=== PATIENT | female | born 1960 | race Caucasian/White ===

== ENCOUNTER → 2016-03-20 | Outpatient (CLI) | payer BC ==
--- NOTE | 2016-03-20 11:11 | REP ---
Right humerus two views : There is no fracture or dislocation. Mineralization and joint spaces are normal. There are no calcifications or foreign bodies. Impression: Negative right humerus . Signed by Josué Bright MD 03/20/2016 10:21 A
--- NOTE | 2016-03-20 11:11 | REP ---
Right shoulder three views : There is no fracture or dislocation. Mineralization and joint spaces are normal. There are no calcifications or foreign bodies. Impression: Negative right shoulder . Signed by Josué Bright MD 03/20/2016 10:20 A
--- NOTE | 2016-03-20 11:12 | REP ---
Thoracic spine three views: There are no comparisons. Vertebral body heights and alignment are normal. There is mild intervertebral degenerative disc disease throughout the thoracic spine, not unusual for patient age. The pedicles are unremarkable. Mineralization is normal. Impression: Mild multilevel degenerative disc disease, otherwise, negative thoracic spine. Signed by Josué Bright MD 03/20/2016 10:22 A
== END ==
LOC: M CLY 09:10
PROVIDERS: ATTEND Family Medicine
DX: M51.34 Other intervertebral disc degeneration, thoracic region (principal); M79.601 Pain in right arm

== ENCOUNTER → 2016-06-05 | Outpatient (CLI) | payer BC ==
--- NOTE | 2016-06-08 08:25 | REP ---
MRI CERVICAL SPINE WITHOUT CONTRAST: HISTORY: Arm paresthesia. A disc bulge is present at the C4-5 level. There is mild effacement of the thecal sac without spinal cord compression. The C4 neural foramina are patent. A disc bulge with associated osteophyte formation is present at the C5-6 level. There is moderate effacement of the thecal sac without spinal cord compression. Bilateral uncinate process hypertrophy is present. This produces moderate and mild narrowing of the right and left C5 neural foramina respectively. A disc bulge with associated osteophyte formation is present at the C6-7 level. There is moderate effacement of the thecal sac without spinal cord compression. Bilateral uncinate process hypertrophy is present. This produces moderate and mild narrowing of the right and left C6 neural foramina respectively. There is no other disc bulge or herniation. The remaining neural foramina are patent. The spinal cord is normal in signal intensity. The C5-6 and C6-7 intervertebral discs are decreased in height consistent with disc degeneration. A 4 mm focus of increased signal intensity on T2-weighted images is present in the right thyroid lobe. The left thyroid lobe is normal in signal intensity. IMPRESSION: 1. There is cervical spondylosis at the C4-5 through C6-7 levels without spinal cord compression. 2. There is a 4 mm focus of increased signal intensity in the right thyroid lobe. This most likely represents a cyst. Ultrasound may be helpful for further evaluation. Signed by Adrian Hammond MD 06/08/2016 08:28 A
--- NOTE | 2016-06-08 08:32 | REP ---
MRI THORACIC SPINE WITHOUT CONTRAST: HISTORY: Right arm paresthesia. A small left paracentral disc protrusion is present at the T4-5 level. There is minimal effacement of the thecal sac without spinal cord compression. The T4 neural foramina are patent. A small left paracentral disc protrusion is present at the T6-7 level. This abuts the spinal cord. The T6 neural foramina are patent. There is no other disc bulge or herniation. The remaining neural foramina are patent. The spinal cord is normal in signal intensity. A hemangioma is present in the T7 vertebral body. Normal signal intensity is present in the remaining thoracic vertebral bodies. There is an old compression fracture of the T12 vertebral body with minimal height loss. Cysts are present in the kidneys. IMPRESSION: 1. Small disc protrusions at the T4-5 and T6-7 levels without spinal cord compression. 2. Old T12 compression fracture with minimal height loss. 3. Bilateral renal cysts. Ultrasound may be helpful for further evaluation. Signed by Adrian Hammond MD 06/08/2016 08:34 A
== END ==
LOC: M RAD 16:45
PROVIDERS: ATTEND Family Medicine
DX: M43.02 Spondylolysis, cervical region (principal); R93.8 Abnormal findings on diagnostic imaging of other specified body structures; M51.24 Other intervertebral disc displacement, thoracic region; N28.1 Cyst of kidney, acquired; Z87.81 Personal history of (healed) traumatic fracture

== ENCOUNTER → 2016-08-05 | Outpatient (CLI) | payer BC ==
[~2016-08-05] MED LIST: LIDOCAINE 1% MDV 20ML VIAL As Ordered ONE
== END ==
LOC: M RADPRO 11:52
PROVIDERS: ATTEND Nurse Practitioner Family
DX: D34 Benign neoplasm of thyroid gland (principal); Z88.8 Allergy status to other drugs, medicaments and biological substances; Z79.899 Other long term (current) drug therapy

== ENCOUNTER → 2017-01-04 | Outpatient (CLI) | payer BC ==
--- NOTE | 2017-01-04 10:16 | REPMRS ---
Patient History The patient states she had a clinical breast exam in Patient is postmenopausal. Family history of ovarian cancer in paternal grandmother under age 50. Digital Woman Screen Mammo: January 04, 2017 - Exam #: [id number] Bilateral CC and MLO view(s) were taken. Technologist: Lisa Cortez, Technologist Prior study comparison: October 18, 2015, digital woman screen mammo performed at [facility]. October 17, 2014, digital woman screen mammo performed at [facility] to [facility]. FINDINGS: There are scattered fibroglandular densities. There has been no change in the appearance of the mammogram from the prior studies. There is a mild amount of scattered fibroglandular density which is fairly symmetric. There is no interval development of dominant mass, architectural distortion, or clustered microcalcification suggestive of malignancy. ASSESSMENT: BI-RADS/ACR category 1 mammogram. Negative. Recommendation Routine screening mammogram in 1 year (for women over age 40). This mammogram was interpreted with the aid of an FDA-approved computer-aided dectection system. Electronically Signed By: Rob Ken MD 01/04/17 1016
== END ==
LOC: M WHC 08:51
PROVIDERS: ATTEND Nurse Practitioner Family
DX: Z12.31 Encounter for screening mammogram for malignant neoplasm of breast (principal)

== ENCOUNTER → 2017-01-04 | Outpatient (REF) | payer BC ==
[2017-01-06 08:06] LABS: Lyme Disease IgG Ab 18 kDa Ban Absent (.); Lyme Disease IgG Ab 23 kDa Ban Absent (.); Lyme Disease IgG Ab 28 kDa Ban Absent (.); Lyme Disease IgG Ab 30 kDa Ban Absent (.); Lyme Disease IgG Ab 39 kDa Ban Absent (.); Lyme Disease IgG Ab 41 kDa Ban Absent (.); Lyme Disease IgG Ab 45 kDa Ban Absent (.); Lyme Disease IgG Ab 58 kDa Ban Absent (.); Lyme Disease IgG Ab 66 kDa Ban Absent (.); Lyme Disease IgG Ab 93 kDa Ban Absent (.); Lyme Disease IgG West Blot Int Negative (.); Lyme Disease IgG/IgM Antibodie <0.91 ISR (0.00-0.90); Lyme Disease IgM Ab 23 kDa Ban Absent (.); Lyme Disease IgM Ab 39 kDa Ban Absent (.); Lyme Disease IgM Ab 41 kDa Ban Present (.); Lyme Disease IgM Ab Quantitati 1.09 index (0.00-0.79); Lyme Disease IgM West Blot Int Negative (.)
== END ==
LOC: M SFHCCLAY 07:28
PROVIDERS: ATTEND Family Medicine
DX: R76.8 Other specified abnormal immunological findings in serum (principal)

== ENCOUNTER → 2018-06-28 | Outpatient (REF) | payer BC ==
[2018-07-02 14:30] LABS: HPV HYBRID CAPTURE II Negative (Negative)
== END ==
LOC: M SFHCWAGY 16:18
PROVIDERS: ATTEND Nurse Practitioner Family
DX: Z12.72 Encounter for screening for malignant neoplasm of vagina (principal)
CPT/HCPCS: 87624; G0123

== ENCOUNTER → 2018-06-28 | Outpatient (CLI) | payer BC ==
--- NOTE | 2018-06-28 16:54 | REPMRS ---
Patient History The patient states she had a clinical breast exam in 06/2018. Patient is postmenopausal. Family history of ovarian cancer under age 50 in paternal grandmother. No Hormone Replacement Therapy Digital Woman Screen Mammo: June 28, 2018 - Exam #: [id number] Bilateral CC and MLO view(s) were taken. Technologist: Yanelis Lomeli, Technologist Prior study comparison: January 04, 2017, digital woman screen mammo performed at [facility]. October 18, 2015, digital woman screen mammo performed at [facility]. October 17, 2014, digital woman screen mammo performed at [facility] [employer] [place] [facility]. FINDINGS: There are scattered fibroglandular densities. There has been no change in the appearance of the mammogram from the prior studies. There is a mild amount of scattered fibroglandular density which is fairly symmetric. There is no interval development of dominant mass, architectural distortion, or clustered microcalcification suggestive of malignancy. 3-D tomosynthesis shows no additional findings. Assessment: BI-RADS/ACR category 1 mammogram. Negative Mammogram. Recommendation Routine screening mammogram of both breasts in 1 year (for women over age 40). This patient's Lifetime Breast Cancer RIsk is estimated at 9.0 %. This mammogram was interpreted with the aid of an FDA-approved computer-aided dectection system. Electronically Signed By: Rob Ken MD 06/28/18 2360
== END ==
LOC: M WHC 14:30
PROVIDERS: ATTEND Nurse Practitioner Family
DX: Z12.31 Encounter for screening mammogram for malignant neoplasm of breast (principal); Z78.0 Asymptomatic menopausal state

== ENCOUNTER → 2018-12-20 | Outpatient (REF) | payer BC ==
[2018-12-21 11:59] LABS: APPEARANCE, URINE CLEAR (CLEAR); BACTERIA, URINE AUTO NEGATIVE (NEGATIVE); BILIRUBIN, URINE AUTO NEGATIVE (NEGATIVE); BLOOD, URINE BLOOD 3+ (NEGATIVE); COLOR, URINE YELLOW (YELLOW); GLUCOSE, URINE (UA) AUTO NEGATIVE (NEGATIVE); KETONE, URINE AUTO NEGATIVE (NEGATIVE); LEUKOCYTE ESTERASE, URINE AUTO NEGATIVE (NEGATIVE); MUCUS, URINE SMALL (NEGATIVE); NITRITE, URINE AUTO NEGATIVE (NEGATIVE); PROTEIN, URINE AUTO NEGATIVE (NEGATIVE); RBC, URINE AUTO 40 /HPF (0-3); SPECIFIC GRAVITY URINE AUTO 1.012 (1.002-1.035); SQUAMOUS EPITHELIAL CELL UR AU 0 /HPF (0-6); UROBILINOGEN, URINE AUTO 0.2 mg/dL (0.0-2.0); WBC, URINE AUTO 1 /HPF (0-3)
[2018-12-21 12:24] LABS: BLOOD UREA NITROGEN 19 MG/DL (7-18); CALCIUM LEVEL 8.9 MG/DL (8.5-10.1); CARBON DIOXIDE LEVEL 30 MEQ/L (21-32); CHLORIDE LEVEL 111 MEQ/L (98-107); CREATININE FOR GFR 0.81 MG/DL (0.55-1.30); FREE T3 2.6 PG/ML (2.2-4.0); FREE T4 0.92 NG/DL (0.76-1.46); GLOMERULAR FILTRATION RATE > 60.0 (>51); GLUCOSE, FASTING 79 MG/DL (70-100); POTASSIUM SERUM 3.8 MEQ/L (3.5-5.1); SODIUM LEVEL 145 MEQ/L (136-145); THYROID STIMULATING HORMONE 0.355 uIU/ML (0.358-3.740)
== END ==
LOC: M SFHCCLAY 14:02
PROVIDERS: ATTEND Family Medicine
DX: E04.2 Nontoxic multinodular goiter (principal); I10 Essential (primary) hypertension

== ENCOUNTER → 2019-02-06 | Outpatient (REF) | payer BC ==
[2019-02-06 11:17] LABS: APPEARANCE, URINE CLEAR (CLEAR); BACTERIA, URINE AUTO 1+ (NEGATIVE); BILIRUBIN, URINE AUTO NEGATIVE (NEGATIVE); BLOOD, URINE BLOOD 3+ (NEGATIVE); COLOR, URINE YELLOW (YELLOW); GLUCOSE, URINE (UA) AUTO NEGATIVE (NEGATIVE); KETONE, URINE AUTO NEGATIVE (NEGATIVE); LEUKOCYTE ESTERASE, URINE AUTO NEGATIVE (NEGATIVE); MUCUS, URINE SMALL (NEGATIVE); NITRITE, URINE AUTO NEGATIVE (NEGATIVE); PROTEIN, URINE AUTO NEGATIVE (NEGATIVE); RBC, URINE AUTO 23 /HPF (0-3); SQUAMOUS EPITHELIAL CELL UR AU 0 /HPF (0-6); UROBILINOGEN, URINE AUTO 0.2 mg/dL (0.0-2.0); WBC, URINE AUTO 1 /HPF (0-3)
== END ==
LOC: M SFHCCLAY 08:20
PROVIDERS: ATTEND Family Medicine
DX: N20.0 Calculus of kidney (principal)

== ENCOUNTER → 2019-06-20 | Outpatient (REF) | payer BC ==
[2019-06-21 11:50] LABS: FREE T4 0.95 NG/DL (0.76-1.46); THYROID STIMULATING HORMONE 0.231 uIU/ML (0.358-3.740)
== END ==
LOC: M SFHCCLAY 15:48
PROVIDERS: ATTEND Family Medicine
DX: E04.2 Nontoxic multinodular goiter (principal)

== ENCOUNTER → 2019-06-30 | Outpatient (CLI) | payer BC ==
--- NOTE | 2019-06-30 16:06 | REPMRS ---
Patient History The patient states she had a clinical breast exam in June 2019. Family history of ovarian cancer under age 50 in paternal grandmother. No Hormone Replacement Therapy Digital Woman Screen Mammo: June 30, 2019 - Exam #: [id number] Bilateral CC and MLO view(s) were taken. Technologist: Mary North, Technologist Prior study comparison: June 28, 2018, bilateral digital woman screen mammo performed at [facility]. January 04, 2017, digital woman screen mammo performed at [facility]. October 18, 2015, digital woman screen mammo performed at [facility]. FINDINGS: The breast tissue is almost entirely fat. The Volpara volumetric breast density category is: A. There has been no change in the appearance of the mammogram from the prior studies. There is no interval development of dominant mass, architectural distortion, or grouped microcalcification typical of malignancy. 3-D tomosynthesis shows no additional findings. Assessment: BI-RADS/ACR category 1 mammogram. Negative Mammogram. Recommendation Routine screening mammogram of both breasts in 1 year (for women over age 40). This patient's Lifetime Breast Cancer RIsk is estimated at 8.8 %. This mammogram was interpreted with the aid of an FDA-approved computer-aided dectection system. Electronically Signed By: Rob Ken MD 06/30/19 3098
== END ==
LOC: M WHC 15:08
PROVIDERS: ATTEND Nurse Practitioner Family
DX: Z12.31 Encounter for screening mammogram for malignant neoplasm of breast (principal); Z80.41 Family history of malignant neoplasm of ovary

== ENCOUNTER → 2020-02-28 | Outpatient (CLI) | payer BC ==
[~2020-02-28] MED LIST changes: +BISO5TAB14 PO; +GAVICHW5 PO; -LIDOCAINE 1% MDV 20ML VIAL As Ordered ONE; +OMEP-218 PO; +SERT50TA29 PO
== END ==
LOC: M LABSMTC 10:51
PROVIDERS: ATTEND Anesthesiology
DX: Z01.812 Encounter for preprocedural laboratory examination (principal); Z20.822 Contact with and (suspected) exposure to COVID-19

== ENCOUNTER 2020-03-04 09:48 | Day surgery (SDC) | payer BC ==
[~2020-03-04] VITALS: Ht 154.9 cm; Wt 71.2 kg
[~2020-03-04 09:48] MED LIST changes: +NS 1,000 ML IV ONE
--- OUTSIDE RECORDS SUMMARY | 2020-03-04 09:54 | CCD ---
Author Author [facility] Organization [facility] Address Unknown Phone Unavailable Care Team Providers Care Instructor Creeler Name Role Phone BetitoWinnie alvarado Unavailable PROBLEMS Type Condition ICD9-CM Code [id number] Code Onset Dates Condition S tatus SNOMED Code Notes Problem Nephrolithiasis N20.0 Active 26867758 Problem Essential hypertension I10 Active 74705067 ALLERGIES No Known Allergies ENCOUNTERS from 1960 to 2020-01-08 Encounter Location Date Provider Diagnosis [address] [address] Dec, Winnie Polo Contact with and (suspected) exposure to other viral communicable diseases Z20.828 IMMUNIZATIONS No Information SOCIAL HISTORY Sex Assigned At : Social History Observation Description Sex Assigned At Unknown REASON FOR REFERRAL No Information VITAL SIGNS No information MEDICATIONS Medication SIG (Take, Route, Frequency, Duration) Notes Start Da te End Date Status Bisoprolol Fumarate 5 MG 1 tablet Orally Once a day Active Sertraline HCl 50 MG 1 tablet Orally Once a day for 30 day(s) Active Nexium 20 MG 1 capsule Orally Once a day Not-Taking Vitamin D3 1000 UNIT 1 tablet Orally Once a day Active PROCEDURES No Information RESULTS No Results REASON FOR VISIT COVID testing MEDICAL (GENERAL) HISTORY Type Description Date Medical History Hyperlipidemia Medical History HTN Medical History GERD Medical History Kidney stones Surgical History BTL Surgical History Hysterectomy Surgical History Tonsillectomy Hospitalization History Surgical needs Hospitalization History Bowel burn with hysterectomy, no femi rossana observation Goals Section No Information Health Concerns No Information MEDICAL EQUIPMENT No Information MENTAL STATUS No Information FUNCTIONAL STATUS No Information ASSESSMENTS Encounter Date Diagnosis Assessment Notes Treatment Notes Treatm ent Clinical Notes Dec, Contact with and (suspected) exposure to other viral communicable diseases (ICD-10 - Z20.828) PLAN OF TREATMENT Treatment Notes Test Name Order Date COVID19 2020-01-08 Insurance Providers Payer Name Payer Address Payer Phone Insured Name Patient Relati onship to Insured Coverage Start Date Coverage End Date BCESSENT-BC ESSENTIAL [address] [address] [facility] [id number] Rosalia Olsen self
--- OUTSIDE RECORDS SUMMARY | 2020-03-04 09:54 | CCD ---
Author Author [facility] Organization [facility] Address Unknown Phone Unavailable Care Team Providers Care Equipment Processer Storage Name Role Phone Jake Lara Unavailable PROBLEMS Type Condition ICD9-CM Code AKF22-JF Code Onset Dates Condition S tatus SNOMED Code Notes Problem Multinodular goiter E04.2 Active 632085741 Problem Elevated cholesterol E78.00 Active 563116511 Problem Chronic pain G89.29 Active 53062104 Problem Chronic cough R05 Active 65012736 Problem Depression F32.9 Active 72692677 Problem Essential hypertension I10 Active 44254442 Problem Immunization due Z23 Active 293382648 Problem Hiatal hernia K44.9 Active 05439585 Problem Arm paresthesia, right R20.2 Active 65820919 Problem 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 Active 79579003 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 21743916 Problem Chronic fatigue R53.82 Active 43847872 Problem Thyroid nodule E04.1 Active 306334892 Problem Subclinical hyperthyroidism E05.90 Active 4279 91840 Problem Scratched by cat, initial encounter W55.03XA Act seema 250440230 Problem 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 Active 976602 00 Problem Connective tissue disease, 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 [place] [address] Dec, Jake Lara Essential hypertension I10 ; Colon cancer screening Z12.11 ; Multinodular goiter E04.2 and Immunization not carried out because of patient refusal Z28.21 IMMUNIZATIONS Vaccine Route Administration Date Status Influenza (Pharmacy Given) Unknown Nov 23, 2019 Admin istered Influenza (Pharmacy Given) Unknown Nov 23, 2019 Admin istered Influenza (Pharmacy Given) Unknown Nov 22, 2018 Admin istered TDAP 0.5mL (Boostrix) IM Intramuscular Dec 31, 2015 Administe red Influenza (6mo & up) Fluzone Unknown Nov 01, 2017 Adm inistered Influenza (6mo & up) Fluzone IM Intramuscular Nov 05, 2015 Ad ministered Influenza (6mo & up) Fluzone IM Intramuscular Nov 08, 2013 Ad ministered SOCIAL HISTORY Tobacco Use: Social History Observation Description Date Details (start date - stop date) Never Smoker Sex Assigned At : Social History Observation Description Sex Assigned At Unknown Education: Question Answer Notes Level of Education: College Audit Question Answer Notes Total Score: 1 Interpretation: Alcohol Education Language: Question Answer Notes Languages spoken: Malawian Advent: Question Answer Notes Advent 13 Scientologist Sexual Hx: Question Answer Notes Had sex in the last 12 months (vaginal, oral, or anal)? Yes Have you ever had an STD? No with Men only Use protection? No Drug and Alcohol Question Answer Notes Total Score: 0 Interpretation: No problems reported Alcohol Screening: Question Answer Notes Did you have a drink containing alcohol in the past year? Ye s Points 1 Interpretation Negative How often did you have six or more drinks on one occas ion in the past year? Never (0 points) How many drinks did you have on a typica l day when you were drinking in the past year? 1 or 2 (0 points) How often did you have a drink containing alcohol in t he past year? Monthly or less (1 point) BMI Care Goal Follow-Up Question Answer Notes Above Normal BMI Follow-Up Giving encouragement to exercise Tobacco Use: Question Answer Notes Are you a: never smoker never smoker Additional Findings: Tobacco User no REASON FOR REFERRAL No Information VITAL SIGNS Weight 163.12 lbs Dec, Height 62 in 13 Dec, 2019 BMI 29.83 kg/m2 Dec, Heart Rate 66 /min Dec, Respiratory Rate 18 /min Dec, Temperature 97.8 degrees Fahrenheit Dec, Oximetry 98RA Dec, Blood pressure systolic 126 mm Hg Dec, Blood pressure diastolic 75 mm Hg Dec, MEDICATIONS Medication SIG (Take, Route, Frequency, Duration) Notes Start Da te End Date Status Pepcid AC 10 MG 1 tab Orally Daily as needed Active Nystatin 523880 UNIT/GM 1 application Externally Twice a day to skin folds Jul, Active Zoloft 50 MG 1 tab Orally Once a day Active Vitamin D 1000 UNIT 1 capsule Orally daily./winter months Active Ibuprofen 200 MG 1 tablet with food or milk as needed Ora lly Three times a day Active Bisoprolol Fumarate 5 MG 1 tablet Orally Once a day Active PROCEDURES No Information RESULTS No Results REASON FOR VISIT 6 mo follow up MEDICAL (GENERAL) HISTORY Type Description Date Medical History Thyroid nodules- Dr. Boone discharged Medical History Hypercholesterolemia Medical History Macular degeneration/rods-cones Medical History Chronic cough Medical History Nodule on right kidney-hx. of hematuria( cystoscopy Q 2 years) Medical History Kidney stones, Dr. 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) Medical History Hypertension Medical History Hiatal hernia Medical History Asthma, unspecified, unspecified status Medical History Sjogrens syndrome Medical History Nephrolithiasis Medical History Tyrer Cuzick score 12.47% Medical History Myriad My risk Genetic test neg 2018 Surgical History T & A Surgical History Hysterectomy, total with BSO 2008 Surgical History Tubal ligation Surgical History Endoscopy 02/27 Surgical History colonoscopy no polyps due 11/2014 Surgical History cystoscopy 2017 Surgical History Biopsy thyroid- benign 07/2017 Hospitalization History surgery Goals Section No Information Health Concerns No Information MEDICAL EQUIPMENT No Information MENTAL STATUS No Information FUNCTIONAL STATUS No Information ASSESSMENTS Encounter Date Diagnosis Assessment Notes Treatment Notes Treatm ent Clinical Notes Dec, Essential hypertension (ICD-10 - I10) Encouraged regular exercise and balanced diet. Dec, Colon cancer screening (ICD-10 - Z12.11) Dec, Multinodular goiter (ICD-10 - E04.2) Dec, Immunization not carried out because of patient refusal (ICD-10 - Z28.21) PLAN OF TREATMENT Medication Medication Name Sig Start Date Stop Date Pepcid AC 10 MG 1 tab Orally Daily as needed Ibuprofen 200 MG 1 tablet with food or milk as needed Ora lly Three times a day Bisoprolol Fumarate 5 MG 1 tablet Orally Once a day Vitamin D 1000 UNIT 1 capsule Orally daily./winter months Nystatin 970162 UNIT/GM 1 application Externally Twice a day to skin folds Jul, Zoloft 50 MG 1 tab Orally Once a day Treatment Notes Assessment Notes Clinical Notes Essential hypertension Encouraged regular exercise and nevin jonel diet. Future Test Test Name Order Date [facility] THYROID, SOFT TISSUE HEAD +NECK [id number] Cologuard (Send Out Only) [id number] Next Appt Details 6 Months Reason: Provider Name:Jake Lara, 2020-06-28 08 :00:00 AM, [address] [place] [address], [phone], Provider Name:Lawanda Lambert, 2020-07-01 03:00:00 PM, [address] [place] [address], [phone], Provider Name:Ana Phelan, 02:00:00 PM, [address] [place] [address], [id number], Insurance Providers Payer Name Payer Address Payer Phone Insured Name Patient Relati onship to Insured Coverage Start Date Coverage End Date RABIA LAL PPO [phone] [facility] [place] [address] LINDA OLSEN self 2012
--- OUTSIDE RECORDS SUMMARY | 2020-03-04 09:54 | CCD ---
Author Author [facility] Organization [facility] Address Unknown Phone Unavailable Care Team Providers Care Care Transitions Manager Name Role Phone Jake Lara Unavailable PROBLEMS Type Condition ICD9-CM Code JDN33-SJ Code Onset Dates Condition S tatus SNOMED Code Notes Problem Multinodular goiter E04.2 Active 194292835 Problem Elevated cholesterol E78.00 Active 444481944 Problem Chronic pain G89.29 Active 08827663 Problem Chronic cough R05 Active 98045716 Problem Depression F32.9 Active 87597236 Problem Essential hypertension I10 Active 79522679 Problem Immunization due Z23 Active 066743889 Problem Hiatal hernia K44.9 Active 93833462 Problem Arm paresthesia, right R20.2 Active 53825508 Problem 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 Active 01628003 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 90418242 Problem Chronic fatigue R53.82 Active 03747925 Problem Thyroid nodule E04.1 Active 005519585 Problem Subclinical hyperthyroidism E05.90 Active 4279 05543 Problem Scratched by cat, initial encounter W55.03XA Act seema 120206928 Problem 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 Active 614329 00 Problem Connective tissue disease, 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 Active 031241189 Problem Nephrolithiasis N20.0 Active 58077931 Problem Reflux esophagitis K21.0 Active 678738556 Problem Myalgia M79.10 Active 45302472 ALLERGIES Allergen (clinical drug ingredient) Drug/Non Drug Allergy do cumented on EMR Reaction Allergy Type Onset Date Status Injected with dye to look in eyes Itchy Non Drug All ergy Active prednisone Prednisone([facility] Code:[address]-25) Antoni Drug Allergy Active ENCOUNTERS from 1960 to 2020-02-07 Encounter Location Date Provider Diagnosis [facility] [place] [address] Jan, Jake Santanah IMMUNIZATIONS Vaccine Route Administration Date Status Influenza [...] Education Language: Question Answer Notes Languages spoken: Salvadorean Restorationism: Question Answer Notes Restorationism 13 Taoist Sexual Hx: Question Answer Notes Had sex [...] tab Orally Daily as needed Active Nystatin 882094 UNIT/GM 1 application Externally Twice a day to skin folds Jul, Active Zoloft 50 MG 1 tab Orally Once a day Active Vitamin D 1000 UNIT 1 capsule Orally daily./winter Active Ibuprofen 200 MG 1 tablet with food or milk as needed Ora lly Three times a day Active Bisoprolol Fumarate 5 MG 1 tablet Orally Once a day Active PROCEDURES No Information RESULTS No Results REASON FOR VISIT Thyroid ultrasound MEDICAL (GENERAL) HISTORY Type Description Date Medical [...] no polyps due 11/2014 Surgical History cystoscopy 2016 Surgical History Biopsy thyroid- benign 07/2017 Hospitalization History surgery Goals Section No Information Health Concerns No Information MEDICAL EQUIPMENT No Information MENTAL STATUS No Information FUNCTIONAL STATUS No Information ASSESSMENTS No Information PLAN OF TREATMENT Medication Medication Name Sig Start Date Stop Date Pepcid AC 10 MG 1 tab Orally Daily as needed Ibuprofen 200 MG 1 tablet with food or milk as needed Ora lly Three times a day Bisoprolol Fumarate 5 MG 1 tablet Orally Once a day Vitamin D 1000 UNIT 1 capsule Orally daily./winter Nystatin 466007 UNIT/GM 1 application Externally Twice a day to skin folds Jul, Zoloft 50 MG 1 tab Orally Once a day Next Appt Details Provider Name:Jake Lara, 2020-06-28 08 :00:00 AM, [address] [place], [phone], Provider Name:Lawanda Lambert, 2020-07-01 03:00:00 PM, [address] [place], [address], Provider Name:Ana Phelan, 02:00:00 PM, [address] [place], [address], Insurance Providers Payer Name Payer Address Payer Phone Insured Name Patient Relati onship to Insured Coverage Start Date Coverage End Date RABIA LAL [facility] [phone] [facility] [place] [address] LINDA OLSEN self 2012
--- OUTSIDE RECORDS SUMMARY | 2020-03-04 09:54 | CCD ---
Author Author [facility] Organization [facility] Address Unknown Phone Unavailable Care Team Providers Care Software Build Engineer Name Role Phone Winnie Polo Unavailable PROBLEMS Type Condition ICD9-CM Code EII68-PT Code Onset Dates Condition S tatus SNOMED Code Notes Problem Nephrolithiasis N20.0 Active 58141478 Problem Essential hypertension I10 Active 52011034 ALLERGIES No Known Allergies ENCOUNTERS from 1960 to 2020-01-02 Encounter [place] [address] Dec, Winnie Polo IMMUNIZATIONS No Information SOCIAL HISTORY Sex Assigned [...] Information RESULTS No Results REASON FOR VISIT No Information MEDICAL (GENERAL) HISTORY Type Description Date Medical [...] Information ASSESSMENTS No Information PLAN OF TREATMENT No Information Insurance Providers Payer Name Payer Address Payer Phone Insured Name Patient Relati onship to Insured Coverage Start Date Coverage End Date BCESSENT-BC ESSENTIAL [address] [address] [facility] [address] Rosalia Olsen self
--- OUTSIDE RECORDS SUMMARY | 2020-03-04 09:54 | CCD ---
Author Author Located Within [facility] Organization Located [facility] Address Unknown Phone Unavailable Care Team Providers Care Cover Maker Name Role Phone Jake Lara Unavailable PROBLEMS Type Condition ICD9-CM Code [id number] Code Onset Dates Condition S tatus SNOMED Code Notes Problem Multinodular goiter E04.2 Active 428501439 Problem Elevated cholesterol E78.00 Active 058745909 Problem Chronic pain G89.29 Active 74421648 Problem Chronic cough R05 Active 72089888 Problem Depression F32.9 Active 00562986 Problem Essential hypertension I10 Active 01130240 Problem Immunization due Z23 Active 405321515 Problem Hiatal hernia K44.9 Active 23523406 Problem Arm paresthesia, right R20.2 Active 58084147 Problem 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 Active 36482403 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 73575960 Problem Chronic fatigue R53.82 Active 08176877 Problem Thyroid nodule E04.1 Active 789776577 Problem Subclinical hyperthyroidism E05.90 Active 4279 43759 Problem Scratched by cat, initial encounter W55.03XA Act seema 103008793 Problem 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 Active 194802 00 Problem Connective tissue disease, 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 Active 347005431 Problem Nephrolithiasis N20.0 Active 02157277 Problem Reflux esophagitis K21.0 Active 236198663 Problem Myalgia M79.10 Active 25414217 ALLERGIES Allergen (clinical drug ingredient) Drug/Non Drug Allergy do cumented on EMR Reaction Allergy Type Onset Date Status Injected with dye to look in eyes Itchy Non Drug All ergy Active prednisone Prednisone([facility] Code:[address]-20) Antoni Drug Allergy Active ENCOUNTERS from 1960 to 2020-01-03 Encounter Location Date Provider Diagnosis [facility] [place] [address] Dec, Jake Santanah IMMUNIZATIONS Vaccine Route Administration Date [...] Education Language: Question Answer Notes Languages spoken: Kyrgyz Synagogue: Question Answer Notes Synagogue 13 Taoist Sexual Hx: Question Answer Notes [...] tab Orally Daily as needed Active Nystatin 589935 UNIT/GM 1 application Externally Twice a day [...] Information RESULTS No Results REASON FOR VISIT Positive COVID MEDICAL (GENERAL) HISTORY Type Description Date Medical [...] 1000 UNIT 1 capsule Orally daily./winter Nystatin 864254 UNIT/GM 1 application Externally Twice a day to skin folds Jul, Zoloft 50 MG 1 tab Orally Once a day Next Appt Details Provider Name:Jake Lara, 2020-06-28 08 :00:00 AM, [address] [place], [address], Provider Name:Lawanda Lambert, 2020-07-01 03:00:00 PM, [address] [place], [address], Provider Name:Ana Phelan, 02:00:00 PM, [address] [place], [address], Insurance Providers Payer Name Payer Address Payer Phone Insured Name Patient Relati onship to Insured Coverage Start Date Coverage End Date RABIA LAL [facility] [id number] [facility] [place] [id number] LINDA OLSEN self 2012
--- OUTSIDE RECORDS SUMMARY | 2020-03-04 09:54 | CCD | Continuity of Care Document ---
Author Author Rosalia PATINO M.D. Organization Unknown Address [address] [place] [address] Phone [phone] Care Team Providers Care Drug Abuse Counselor Name Role Phone Jake Lara M.D. AUTM [phone] Problems Active Problems Provider Date Gastroesophageal reflux disease Rebecca Medellin.N.P. Ons et: 01/19/2012 Cough Sera ArcosA.N.P. Onset: 01/19/20 12 Essential hypertension Onset: 01/19/2012 Pure hypercholesterolemia Onset: 012 Social History Type Date Description Comments Sex Unknown ETOH Use Rarely consumes alcohol Tobacco Use Start: Unknown Patient has never smoked Allergies, Adverse Reactions, Alerts Active Allergies Reaction Severity Comments Date Prednisone 01/19/2012 Medications Active Medications SIG Qnty Indications Ordering Provide r Date Gaviscon Extra Strength 160-105mg Chewtabs 1 tab by mouth four times a day before meals,and at bedtime 360u nitotilia Patino M.D. 02/22/[address] 1 tab by mouth every morning 90caps German Patino M.D. 021 Bisoprolol Fumarate 5mg Tablets Unknown Sertraline HCL 50mg Tablets Take 1 Tablet By Mouth Once A Day Unknown Pepcid 20mg Tablets Unknown D3-1000 25mcg (1000 Ut) Capsules Unknown Immunizations Description No Information Available Vital Signs Date Vital Result Comment 02/22/2020 11:47am Height 61 inches 5'1" Weight 157.00 lb BP Systolic 128 mmHg BP Diastolic 87 mmHg Heart Rate 68 /min BMI (Body Mass Index) 29.7 kg/m2 Weight 71.215 kg Body Temperature 97.3 F 01/19/2012 1:17pm Height 62 inches 5'2" Weight 156.00 lb BP Systolic 128 mmHg BP Diastolic 86 mmHg Heart Rate 66 /min BMI (Body Mass Index) 28.5 kg/m2 Weight 70.762 kg Results Description No Information Available Procedures Description No Information Available Medical Devices Description No Information Available Encounters Type Date Location Provider Dx Diagnosis Office Visit 02/22/2020 11:00a Main Office German Patino M.D. K 21.9 Gastro-esophageal reflux disease without esophagitis Assessments Date Code Description Provider 02/22/2020 K21.9 Gastro-esophageal reflux disease without esophagitis German Patino M.D. Plan of Treatment Future Appointment(s):* 03/04/2020 1:30 pm - German Patino M.D. at Main Office 02/22/2020 - German Patino M.D.* K21.9 Gastro-esophageal reflux disease without esophagitis* Comments:* 59 yo wf who presents for a chronic h/o heartburn. Last egd was negative for intestinal metaplasia. No weight loss. Pt has chronic cough issues. No dysphagia. Last scope 2011. Plan:1. Egd + biopsies.2. Informed consent.3. Omeprazole 20 mgs po qd + Gaviscon Functional Status Description No Information Available Mental Status Description No Information Available Referrals Description No Information Available
--- OUTSIDE RECORDS SUMMARY | 2020-03-04 09:54 | CCD | Continuity of Care Document ---
Author Author Rosalia PATINO M.D. Organization Unknown Address [address] [place] [address] Phone [phone] Care Team Providers Care Microsoft Application Developer Name Role Phone Jake Lara M.D. AUTM [phone] Problems Active Problems Provider Date Gastroesophageal reflux [...] Medical Devices Description No Information Available Encounters Description No Information Available Assessments Date Code Description Provider 02/22/2020 K21.9 [...]
--- OUTSIDE RECORDS SUMMARY | 2020-03-04 09:54 | CCD ---
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 Operator Name Role Phone Cecilia Lara MD Unavailable Unavailable Cecilia Lara MD Unavailable Unavailable Cecilia Lara MD Unavailable Unavailable Cecilia Lara MD Unavailable Unavailable Cecilia Lara MD Unavailable Unavailable Cecilia Lara MD Unavailable Unavailable Cecilia Lara MD Unavailable Unavailable Cecilia Lara MD Unavailable Unavailable Cecilia Lara MD Unavailable Unavailable Cecilia Lara MD Unavailable Unavailable Cecilia Lara MD Unavailable Unavailable Cecilia Lara MD Unavailable Unavailable Cecilia Lara MD Unavailable Unavailable Cecilia Lara MD Unavailable Unavailable Cecilia Lara MD Unavailable Unavailable Cecilia Lara MD Unavailable Unavailable Cecilia Lara MD Unavailable Unavailable Cecilia Lara MD Unavailable Unavailable Cecilia Lara MD Unavailable Unavailable Cecilia Lara MD Unavailable Unavailable Cecilia Lara MD Unavailable Unavailable Cecilia Lara MD Unavailable Unavailable Cecilia Lara MD Unavailable Unavailable Cecilia Lara MD Unavailable Unavailable Cecilia Lara MD Unavailable Unavailable Cecilia Lara MD Unavailable Unavailable Cecilia Lara MD Unavailable Unavailable Cecilia Lara MD Unavailable Unavailable Cecilia Lara MD Unavailable Unavailable Cecilia Lara MD Unavailable Unavailable Cecilia Lara MD Unavailable Unavailable Cecilia Lara MD Unavailable Unavailable Cecilia Lara MD Unavailable Unavailable Cecilia Lara MD Unavailable Unavailable Cecilia Lara MD Unavailable Unavailable Cecilia Lara MD Unavailable Unavailable Cecilia Lara MD Unavailable Unavailable Cecilia Lara MD Unavailable Unavailable Cecilia Lara MD Unavailable Unavailable Cecilia Lara MD Unavailable Unavailable Cecilia Lara MD Unavailable Unavailable Cecilia Lara MD Unavailable Unavailable Cecilia Lara MD Unavailable Unavailable Cecilia Lara MD Unavailable Unavailable Cecilia Lara MD Unavailable Unavailable Cecilia Lara MD Unavailable Unavailable Cecilia Lara MD Unavailable Unavailable Cecilia Lara MD Unavailable Unavailable Cecilia Lara MD Unavailable Unavailable Cecilia Lara MD Unavailable Unavailable Cecilia Lara MD Unavailable Unavailable Cecilia Lara MD Unavailable Unavailable Cecilia Lara MD Unavailable Unavailable Cecilia Lara MD Unavailable Unavailable Cecilia Lara MD Unavailable Unavailable Cecilia Lara MD Unavailable Unavailable Cecilia Lara MD Unavailable Unavailable Cecilia Lara MD Unavailable Unavailable Cecilia Lara MD Unavailable Unavailable Cecilia Lara MD Unavailable Unavailable Cecilia Lara MD Unavailable Unavailable Cecilia Lara MD Unavailable Unavailable Cecilia Lara MD Unavailable Unavailable Cecilia Lara MD Unavailable Unavailable Cecilia Lara MD Unavailable Unavailable Cecilia Lara MD Unavailable Unavailable Cecilia Lara MD Unavailable Unavailable Cecilia Lara MD Unavailable Unavailable Cecilia Lara MD Unavailable Unavailable Cecilia Lara MD Unavailable Unavailable Cecilia Lara MD Unavailable Unavailable Cecilia Lara MD Unavailable Unavailable Missael Garcia MD Unavailable Unavailable Missael Garcia MD Unavailable Unavailable Missael Garcia MD Unavailable Unavailable Missael Garcia MD Unavailable Unavailable Missael Garcia MD Unavailable Unavailable Missael Garcia MD Unavailable Unavailable Missael Garcia MD Unavailable Unavailable Missael Garcia MD Unavailable Unavailable Missael Garcia MD Unavailable Unavailable Missael Garcia MD Unavailable Unavailable Missael Garcia MD Unavailable Unavailable Missael Garcia MD Unavailable Unavailable Missael Garcia MD Unavailable Unavailable Missael Garcia MD Unavailable Unavailable BusceMissael gautam MD Unavailable Unavailable BuscemiMissael MD Unavailable Unavailable BuscemiMissael MD Unavailable Unavailable Buscemi, Missael Murphy MD Unavailable Unavailable BuscemiMissael MD Unavailable Unavailable BuscemiMissael MD Unavailable Unavailable BuscemiMissael MD Unavailable Unavailable BuscemiMissael MD Unavailable Unavailable BuscemiMissael MD Unavailable Unavailable BuscemiMissael MD Unavailable Unavailable BuscemiMissael MD Unavailable Unavailable BuscemiMissael MD Unavailable Unavailable BuscemiMissael MD Unavailable Unavailable BuscemiMissael MD Unavailable Unavailable BuscemiMissael MD Unavailable Unavailable BusceMissael gautam MD Unavailable Unavailable Luis Carlos Patino MD Unavailable Unavailable Luis Carlos Patino MD Unavailable Unavailable Luis Carlos Patino MD Unavailable Unavailable Luis Carlos Patino MD Unavailable Unavailable Luis Carlos Patino MD Unavailable Unavailable Luis Carlos Patino MD Unavailable Unavailable Luis Carlos Patino MD Unavailable Unavailable Luis Carlos Patino MD Unavailable Unavailable Luis Carlos Patino MD Unavailable Unavailable Luis Carlos Patino MD Unavailable Unavailable Luis Carlos Patino MD Unavailable Unavailable Luis Carlos Patino MD Unavailable Unavailable Luis Carlos Patino MD Unavailable Unavailable Luis Carlos Patino MD Unavailable Unavailable Luis Carlos Patino MD Unavailable Unavailable Luis Carlos Patino MD Unavailable Unavailable Luis Carlos Patino MD Unavailable Unavailable Luis Carlos Patino MD Unavailable Unavailable Luis Carlos Patino MD Unavailable Unavailable Luis Carlos Patino MD Unavailable Unavailable Luis Carlos Patino MD Unavailable Unavailable Luis Carlos Patino MD Unavailable Unavailable Luis Carlos Patino MD Unavailable Unavailable Luis Carlos Patino MD Unavailable Unavailable Luis Carlos Patino MD Unavailable Unavailable Luis Carlos Patino MD Unavailable Unavailable Luis Carlos Patino MD Unavailable Unavailable Luis Carlos Patino MD Unavailable Unavailable Luis Carlos Patino MD Unavailable Unavailable Luis Carlos Patino MD Unavailable Unavailable Luis Carlos Patino MD Unavailable Unavailable Luis Carlos Patino MD Unavailable Unavailable Luis Carlos Patino MD Unavailable Unavailable Luis Carlos Patino MD Unavailable Unavailable Luis Carlos Patino MD Unavailable Unavailable Luis Carlos Patino MD Unavailable Unavailable Luis Carlos Patino MD Unavailable Unavailable Luis Carlos Patino MD Unavailable Unavailable Luis Carlos Patino MD Unavailable Unavailable Luis Carlos Patino MD Unavailable Unavailable Luis Carlos Patino MD Unavailable Unavailable Luis Carlos Patino MD Unavailable Unavailable Luis Carlos Patino MD Unavailable Unavailable Luis Carlos Patino MD Unavailable Unavailable Luis Carlos Patino MD Unavailable Unavailable Luis Carlos Patino MD Unavailable Unavailable Luis Carlos Patino MD Unavailable Unavailable Fausto, Lawanda CASHIER GREETER Unavailable Unavailable Fausto, Lawanda CASHIER GREETER Unavailable Unavailable Fausto, Lawanda CASHIER GREETER Unavailable Unavailable Fausto, Lawanda CASHIER GREETER Unavailable Unavailable Fausto, Lawanda CASHIER GREETER Unavailable Unavailable Fausto, Lawanda CASHIER GREETER Unavailable Unavailable Fausto, Lawanda CASHIER GREETER Unavailable Unavailable Fausto, Lawanda CASHIER GREETER Unavailable Unavailable Fausto, Lawanda CASHIER GREETER Unavailable Unavailable Fausto, Lawanda CASHIER GREETER Unavailable Unavailable Fausto, Lawanda CASHIER GREETER Unavailable Unavailable Fausto, Lawanda CASHIER GREETER Unavailable Unavailable Fausto, Lawanda CASHIER GREETER Unavailable Unavailable Fausto, Lawanda CASHIER GREETER Unavailable Unavailable Fausto, Lawanda CASHIER GREETER Unavailable Unavailable Fausto, Lawanda CASHIER GREETER Unavailable Unavailable Fausto, Lawanda CASHIER GREETER Unavailable Unavailable Fausto, Lawanda CASHIER GREETER Unavailable Unavailable Fausto, Lawanda CASHIER GREETER Unavailable Unavailable Fausto, Lawanda CASHIER GREETER Unavailable Unavailable Fausto, Lawanda CASHIER GREETER Unavailable Unavailable Fausto, Lawanda CASHIER GREETER Unavailable Unavailable Fausto, Lawanda CASHIER GREETER Unavailable Unavailable Fausto, Lawanda CASHIER GREETER Unavailable Unavailable Fausto, Lawanda CASHIER GREETER Unavailable Unavailable Fausto, Lawanda CASHIER GREETER Unavailable Unavailable Fausto, Lawanda CASHIER GREETER Unavailable Unavailable Fausto, Lawanda CASHIER GREETER Unavailable Unavailable Fausto, Lawanda CASHIER GREETER Unavailable Unavailable Fausto, Lawanda CASHIER GREETER Unavailable Unavailable Fausto, Lawanda CASHIER GREETER Unavailable Unavailable Fausto, Lawanda CASHIER GREETER Unavailable Unavailable Fausto, Lawanda CASHIER GREETER Unavailable Unavailable Fausto, Lawanda CASHIER GREETER Unavailable Unavailable Fausto, Lawanda CASHIER GREETER Unavailable Unavailable Fausto, Lawanda CASHIER GREETER Unavailable Unavailable Fausto, Lawanda CASHIER GREETER Unavailable Unavailable Fausto, Lawanda CASHIER GREETER Unavailable Unavailable Fausto, Lawanda CASHIER GREETER Unavailable Unavailable Fausto, Lawanda CASHIER GREETER Unavailable Unavailable Cecilia Lara MD Unavailable Unavailable Cecilia Lara MD Unavailable Unavailable Cecilia Lara MD Unavailable Unavailable Cecilia Lara MD Unavailable Unavailable Cecilia Lara MD Unavailable Unavailable Cecilia Lara MD Unavailable Unavailable Cecilia Lara MD Unavailable Unavailable Cecilia Lara MD Unavailable Unavailable Cecilia Lara MD Unavailable Unavailable Cecilia Lara MD Unavailable Unavailable Cecilia Lara MD Unavailable Unavailable Cecilia Lara MD Unavailable Unavailable Cecilia Lara MD Unavailable Unavailable Cecilia Lara MD Unavailable Unavailable Cecilia Lara MD Unavailable Unavailable Cecilia Lara MD Unavailable Unavailable Cecilia Lara MD Unavailable Unavailable Cecliia Lara MD Unavailable Unavailable Cecilia Lara MD Unavailable Unavailable Cecilia Lara MD Unavailable Unavailable Cecilia Lara MD Unavailable Unavailable Cecilia Lara MD Unavailable Unavailable Cecilia Lara MD Unavailable Unavailable Cecilia Lara MD Unavailable Unavailable Cecilia Lara MD Unavailable Unavailable Cecliia Lara MD Unavailable Unavailable Cecilia Lara MD Unavailable Unavailable Cecilia Lara MD Unavailable Unavailable Cecilia Lara MD Unavailable Unavailable Cecilia Lara MD Unavailable Unavailable Cecilia Lara MD Unavailable Unavailable Cecilia Lara MD Unavailable Unavailable Cecilia Lara MD Unavailable Unavailable Cecilia Lara MD Unavailable Unavailable Cecilia Lara MD Unavailable Unavailable Cecilia Lara MD Unavailable Unavailable Cecilia Lara MD Unavailable Unavailable Cecilia Lara MD Unavailable Unavailable Cecilia Lara MD Unavailable Unavailable Cecilia Lara MD Unavailable Unavailable Cecilia Lara MD Unavailable Unavailable Cecilia Lara MD Unavailable Unavailable Cecilia Lara MD Unavailable Unavailable Cecilia Lara MD Unavailable Unavailable Cecilia Lara MD Unavailable Unavailable Cecilia Lara MD Unavailable Unavailable Cecilia Lara MD Unavailable Unavailable Cecilia Lara MD Unavailable Unavailable Cecilia Lara MD Unavailable Unavailable Cecilia Lara MD Unavailable Unavailable Cecilia Lara MD Unavailable Unavailable Cecilia Lara MD Unavailable Unavailable Cecilia Lara MD Unavailable Unavailable Cecilia Lara MD Unavailable Unavailable Cecilia Lara MD Unavailable Unavailable Cecilia Lara MD Unavailable Unavailable Cecilia Lara MD Unavailable Unavailable Cecilia Lara MD Unavailable Unavailable Cecilia Lara MD Unavailable Unavailable Cecilia Lara MD Unavailable Unavailable Cecilia Lara MD Unavailable Unavailable Cecilia Lara MD Unavailable Unavailable Cecilia Lara MD Unavailable Unavailable Cecilia Lara MD Unavailable Unavailable Cecilia Lara MD Unavailable Unavailable Cecilia Lara MD Unavailable Unavailable Cecilia Lara MD Unavailable Unavailable Cecilia Lara MD Unavailable Unavailable Cecilia Lara MD Unavailable Unavailable Cecilia Lara MD Unavailable Unavailable Cecilia Lara MD Unavailable Unavailable Cecilia Lara MD Unavailable Unavailable Brando, Reji Valencia YEAST WASHER-C Unavailable Unavailabl e Brando, Reji Valencia YEAST WASHER-C Unavailable Unavailabl e Brando, Reji Valencia YEAST WASHER-C Unavailable Unavailabl e Brando, Reji Valencia YEAST WASHER-C Unavailable Unavailabl e Brando, Reji Valencia YEAST WASHER-C Unavailable Unavailabl e Brando, Reji Valencia YEAST WASHER-C Unavailable Unavailabl e Branod, Reji Valencia YEAST WASHER-C Unavailable Unavailabl e Brando, Reji Valencia YEAST WASHER-C Unavailable Unavailabl e Brando, Reji W Annie YEAST WASHER-C Unavailable Unavailabl e Brando, Reji Valencia YEAST WASHER-C Unavailable Unavailabl e Brando, Reji Valencia YEAST WASHER-C Unavailable Unavailabl e Brando, Reji Valencia YEAST WASHER-C Unavailable Unavailabl e Brando, Reji Valencia YEAST WASHER-C Unavailable Unavailabl e Brando, Karolyn Ant Valencia YEAST WASHER-C Unavailable Unavailabl e Brando, Karolyn Ant Valencia YEAST WASHER-C Unavailable Unavailabl e Brando, Karolyn Ant Valencia YEAST WASHER-C Unavailable Unavailabl e Brando, Karolyn Ant Valencia YEAST WASHER-C Unavailable Unavailabl e Brando, Karolyn Ant Valencia YEAST WASHER-C Unavailable Unavailabl e Brando, Karolyn W Annie YEAST WASHER-C Unavailable Unavailabl e Brando, Karolyn Ant Valencia YEAST WASHER-C Unavailable Unavailabl e Brando, Karolyn W Annie YEAST WASHER-C Unavailable Unavailabl e Brando, Regleigh W Annie YEAST WASHER-C Unavailable Unavailabl e Brando, Regleigh W Annie YEAST WASHER-C Unavailable Unavailabl e Brando, Regleigh W Annie YEAST WASHER-C Unavailable Unavailabl e Brando, Karolyn W Annie YEAST WASHER-C Unavailable Unavailabl e Brando, Regleigh W Annie YEAST WASHER-C Unavailable Unavailabl e Brando, Reginah W Annie YEAST WASHER-C Unavailable Unavailabl e Barndo, Reginah W Annie YEAST WASHER-C Unavailable Unavailabl e Brando, Reginah W Annie YEAST WASHER-C Unavailable Unavailabl e Brando, Reginah W Annie YEAST WASHER-C Unavailable Unavailabl e Brando, Reginah W Annie YEAST WASHER-C Unavailable Unavailabl e Brando, Reginah W Annie YEAST WASHER-C Unavailable Unavailabl e Allison Mancuso MD Unavailable Unavailable Allison Mancuso MD Unavailable Unavailable Allison Mancuso MD Unavailable Unavailable Allison Mancuso MD Unavailable Unavailable Allison Mancuso MD Unavailable Unavailable Allison Mancuso MD Unavailable Unavailable Allison Mancuso MD Unavailable Unavailable Allison Mancuso MD Unavailable Unavailable Allison Mancuso MD Unavailable Unavailable Allison Mancuso MD Unavailable Unavailable Allison Mancuso MD Unavailable Unavailable Allison Mancuso MD Unavailable Unavailable Allison Mancuso MD Unavailable Unavailable Allison Mancuso MD Unavailable Unavailable Allison Mancuso MD Unavailable Unavailable Allison Mancuso MD Unavailable Unavailable Allison Mancuso MD Unavailable Unavailable Allison Mancuso MD Unavailable Unavailable Allison Mancuso MD Unavailable Unavailable Allison Mancuso MD Unavailable Unavailable Allison Mancuso MD Unavailable Unavailable Allison Mancuso MD Unavailable Unavailable Allison Mancuso MD Unavailable Unavailable Allison Mancuso MD Unavailable Unavailable Allison Mancuso MD Unavailable Unavailable Allison Mancuso MD Unavailable Unavailable Allison Mancuso MD Unavailable Unavailable Allison Mancuso MD Unavailable Unavailable Allison Mancuso MD Unavailable Unavailable Allison Mancuso MD Unavailable Unavailable Allison Mancuso MD Unavailable Unavailable Allison Mancuso MD Unavailable Unavailable Allison Mancuso MD Unavailable Unavailable Allison Mancuso MD Unavailable Unavailable Allison Mancuso MD Unavailable Unavailable Allison Mancuso MD Unavailable Unavailable Allison Mancuso MD Unavailable Unavailable Allison Mancuso MD Unavailable Unavailable Allison Mancuso MD Unavailable Unavailable Allison Mancuso MD Unavailable Unavailable Allison Mancuso MD Unavailable Unavailable Allison Mancuso MD Unavailable Unavailable Allison Mancuso MD Unavailable Unavailable Allison Mancuso MD Unavailable Unavailable Allison Mancuso MD Unavailable Unavailable Allison Mancuso MD Unavailable Unavailable Allison Mancuso MD Unavailable Unavailable Allison Mancuso MD Unavailable Unavailable Allison Mancuso MD Unavailable Unavailable Alilson Mancuso MD Unavailable Unavailable Allison Mancuso MD Unavailable Unavailable Allison Mancuso MD Unavailable Unavailable Allison Mancuso MD Unavailable Unavailable Allison Mancuso MD Unavailable Unavailable Sonia Morgan YEAST WASHER Unavailable Unavailable Morgan, Sonia YEAST WASHER Unavailable Unavailable Morgan, Sonia YEAST WASHER Unavailable Unavailable Morgan, Sonia YEAST WASHER Unavailable Unavailable Morgan, Sonia YEAST WASHER Unavailable Unavailable Morgan, Sonia YEAST WASHER Unavailable Unavailable Morgan, Sonia YEAST WASHER Unavailable Unavailable Moragn, Sonia YEAST WASHER Unavailable Unavailable Morgan, Sonia YEAST WASHER Unavailable Unavailable Morgan, Sonia YEAST WASHER Unavailable Unavailable Morgan, Sonia YEAST WASHER Unavailable Unavailable Morgan, Sonia YEAST WASHER Unavailable Unavailable Morgan, Sonia YEAST WASHER Unavailable Unavailable Morgan, Sonia YEAST WASHER Unavailable Unavailable Morgan, Sonia YEAST WASHER Unavailable Unavailable Morgan, Sonia YEAST WASHER Unavailable Unavailable Morgan, Sonia YEAST WASHER Unavailable Unavailable Morgan, Sonia YEAST WASHER Unavailable Unavailable Morgan, Sonia YEAST WASHER Unavailable Unavailable Morgan, Sonia YEAST WASHER Unavailable Unavailable Morgan, Sonia YEAST WASHER Unavailable Unavailable Morgan, Sonia YEAST WASHER Unavailable Unavailable Morgan, Sonia YEAST WASHER Unavailable Unavailable Morgan, Sonia YEAST WASHER Unavailable Unavailable Morgan, Sonia YEAST WASHER Unavailable Unavailable Morgan, Sonia YEAST WASHER Unavailable Unavailable Morgan, Sonia YEAST WASHER Unavailable Unavailable Morgan, Sonia YEAST WASHER Unavailable Unavailable Morgan, Sonia YEAST WASHER Unavailable Unavailable Morgan, Sonia YEAST WASHER Unavailable Unavailable Morgan, Sonia YEAST WASHER Unavailable Unavailable Morgan, Sonia YEAST WASHER Unavailable Unavailable Morgan, Sonia YEAST WASHER Unavailable Unavailable Morgan, Sonia YEAST WASHER Unavailable Unavailable Morgan, Sonia YEAST WASHER Unavailable Unavailable Morgan, Sonia YEAST WASHER Unavailable Unavailable Rydberg, Winnie PA Unavailable Unavailable Rydberg, Winnie PA Unavailable Unavailable Rydberg, Winnie PA Unavailable Unavailable Rydberg, Winnie PA Unavailable Unavailable Rydberg, Winnie PA Unavailable Unavailable Rydberg, Winnie PA Unavailable Unavailable Rydberg, Winnie PA Unavailable Unavailable Rydberg, Winnie PA Unavailable Unavailable Rydberg, Winnie PA Unavailable Unavailable Rydberg, Winnie PA Unavailable Unavailable Rydberg, Winnie PA Unavailable Unavailable Rydberg, Winnie PA Unavailable Unavailable Rydberg, Winnie PA Unavailable Unavailable Rydberg, Winnie PA Unavailable Unavailable Rydberg, Winnie PA Unavailable Unavailable Rydberg, Winnie PA Unavailable Unavailable Rydberg, Winnie PA Unavailable Unavailable Rydberg, Winnie PA Unavailable Unavailable Rydberg, Winnie PA Unavailable Unavailable Rydberg, Winnie PA Unavailable Unavailable Rydberg, Winnie PA Unavailable Unavailable Rydberg, Winnie PA Unavailable Unavailable Werchinski, L Ana PA Unavailable Unavailable Werchinski, L Ana PA Unavailable Unavailable Werchinski, L Ana PA Unavailable Unavailable Werchinski, L Ana PA Unavailable Unavailable Werchinski, L Ana PA Unavailable Unavailable Werchinski, L Ana PA Unavailable Unavailable Werchinski, L Ana PA Unavailable Unavailable Werchinski, L Ana PA Unavailable Unavailable Werchinski, L Ana PA Unavailable Unavailable Werchinski, L Ana PA Unavailable Unavailable Werchinski, L Ana PA Unavailable Unavailable Werchinski, L Ana PA Unavailable Unavailable Werchinski, L Ana PA Unavailable Unavailable Werchinski, L Ana PA Unavailable Unavailable Werchinski, L Ana PA Unavailable Unavailable Werchinski, L Ana PA Unavailable Unavailable Werchinski, L Ana PA Unavailable Unavailable Werchinski, L Ana PA Unavailable Unavailable Werchinski, L Ana PA Unavailable Unavailable Werchinski, L Ana PA Unavailable Unavailable Werchinski, L Ana PA Unavailable Unavailable Werchinski, L Ana PA Unavailable Unavailable Werchinski, L Ana PA Unavailable Unavailable Werchinski, L Ana PA Unavailable Unavailable Werchinski, L Ana PA Unavailable Unavailable Werchinski, L Ana PA Unavailable Unavailable Werchinski, L Ana PA Unavailable Unavailable Werchinski, L Ana PA Unavailable Unavailable Werchinski, L Ana PA Unavailable Unavailable Werchinski, L Ana PA Unavailable Unavailable Werchinski, L Ana PA Unavailable Unavailable Werchinski, L Ana PA Unavailable Unavailable Werchinski, L Ana PA Unavailable Unavailable Re-disclosure Warning The records that you are about to access may contain information from federally-assisted alcohol or drug abuse programs. If such information is present, then the following federally mandated warning applies: This information has been disclosed to you from records protected by federal confidentiality rules (42 CFR part 2). The federal rules prohibit you from making any further disclosure of this information unless further disclosure is expressly permitted by the written consent of the person to whom it pertains or as otherwise permitted by 42 CFR part 2. A general authorization for the release of medical or other information is NOT sufficient for this purpose. The Federal rules restrict any use of the information to criminally investigate or prosecute any alcohol or drug abuse patient.The records that you are about to access may contain highly sensitive health information, the redisclosure of which is protected by Article 27-F of the [place] State Public Health law. If you continue you may have access to information: Regarding HIV / AIDS; Provided by facilities licensed or operated by the [facility] Office of Mental Health; or Provided by the [facility] Office for People With Developmental Disabilities. If such information is present, then the following [facility] mandated warning applies: This information has been disclosed to you from confidential records which are protected by state law. State law prohibits you from making any further disclosure of this information without the specific written consent of the person to whom it pertains, or as otherwise permitted by law. Any unauthorized further disclosure in violation of state law may result in a fine or retirement sentence or both. A general authorization for the release of medical or other information is NOT sufficient authorization for further disc losure. Allergies and Adverse Reactions Type Description Substance Reaction Status Data Source(s ) Drug allergy Prednisone Prednisone Shakey Active [facility] Injected with dye to look in eyes Injected with dye to loo k in eyes Injected with dye to look in eyes Itchy Active eCW1 ([facility]) Injected with dye to look in eyes Injected with dye to loo k in eyes Injected with dye to look in eyes Itchy Active eCW1 ([facility]) Injected with dye to look in eyes Injected with dye to loo k in eyes Injected with dye to look in eyes Itchy Active eCW1 ([facility]) Family History Family Member Name Family Member Gender Family Member Status Date o f Status Description Data Source(s) Unknown Male Problem [facility] ([facility]) Unknown Male Problem [facility] ([facility]) Encounters Encounter Providers Location Date Indications Data Source(s ) Outpatient Attender: German Patino MD Main Office 02/22/2020 10:00:00 AM EST [facility] ([facility]) Unknown [address] [facility] [address] 02/05/2020 12:00:00 AM EST eCW1 ([facility]) Outpatient Attender: Jake CALVOeferrer: Jake Lara MD 01/29/2020 04:45:00 PM EST - 01/29/2020 04:45:00 PM [facility] Unknown [address] [facility] [address] 01/03/2020 12:00:00 AM EST eCW1 ([facility]) Outpatient [facility] 01/02/2020 12:00:00 AM EST eCW1 ([facility]) Outpatient Attender: Winnie Huizar: Sameer Lara MD EMERGENCY ROOM-LAB REF 01/01/2020 02:15:00 PM EST - 01/01/2020 02:15:00 PM [facility] Outpatient Attender: Jake Lara MD 01/01/2020 01:00:00 PM E [facility] Outpatient [facility] 01/01/2020 12:00:00 AM EST eCW1 ([facility]) Outpatient [address] [facility] [address] 12/29/2019 12:00:00 AM EST eCW1 ([facility]) Outpatient Attender: Jake Long: Jake waldrop MD EMERGENCY ROOM-LABOTHPROV 10/10/2019 08:00:00 AM EDT - 10/10/2019 08:00:00 AM EDT [facility] Outpatient [address] [facility] [address] 08/02/2019 12:00:00 AM EDT eCW1 ([facility]) Outpatient 07/17/2019 06:10:00 AM EDT [facility] [address] [place] [address] 06/30/2019 12:00:00 AM EDT eCW1 ([facility]) [facility] [address] [facility] [address] 06/22/2019 12:00:00 AM EDT eCW1 ([facility]) [facility] [address] [facility] [address] 06/20/2019 12:00:00 AM EDT eCW1 ([facility]) [facility] [address] [facility] [address] 06/13/2019 12:00:00 AM EDT eCW1 ([facility]) Outpatient Attender: Sushil Mancuso MD 04/07/2019 02:40:00 P [facility] 04/07/2019 12: 00:00 AM EST eCW1 ([facility]) [address] [address] 03/28/2019 12:00:00 AM EST eCW1 ([facility]) [address] [address] 03/27/2019 12:00:00 AM EST eCW1 ([facility]) Outpatient Attender: Sushil Solorioerrconnor: Jake Lara MD 03/16/2019 09:00:00 AM [facility] Outpatient Attender: Sushil Long: Jake Lara MD EMERGENCY ROOM-LAB 03/15/2019 08:18:00 AM EST - 03/15/2019 08:18:00 AM [facility] C ENTER 03/09/2019 12:00:00 AM EST eCW1 ([facility]) [address] [address] 03/07/2019 12:00:00 AM EST eCW1 ([facility]) Outpatient Attender: Sushil Mancuso MD 03/03/2019 01:30:00 P [facility] Outpatient [facility] 03/03/2019 12:00:00 AM EST eCW1 ([facility]) Outpatient Attender: Jake Zimmerer: Jake Lara MD 03/01/2019 10:00:[address], [facility] [address] 02/28/2019 12:00:00 AM EST eCW1 ([facility]) [facility] ENTER 02/28/2019 12:00:00 AM EST eCW1 ([facility]) [address] [place] [address] 02/26/2019 12:00:00 AM EST eCW1 ([facility]) Outpatient Attender: Ana Huizar: Jake Brooks 02/06/2019 01:47:00 PM EST - 02/06/2019 02:05:[address] [facility] Rheumatology [address] [place] [address] 02/01/2019 12:00:00 AM EST eCW1 ([facility]) [facility] Rhe[facility] Center [address] [place] [address] 02/01/2019 12:00:00 AM EST eCW1 ([facility]) [facility] [address] [place] [address], [place] [address] 01/19/2019 12:00:00 AM EST eCW1 ([facility]) [facility] [address] [place] [address] [address] 01/13/2019 12:00:00 AM EST eCW1 ([facility]) [facility] [address] [facility] [address] 01/04/2019 12:00:00 AM EST eCW1 [facility] Outpatient Attender: Annie TRACEYP-C 10/27/2018 01:50:[address] [facility] Outpatient Attender: Jake Lara MD 9 04:39:00 PM [facility] - 06/06/2018 04:39:[address] [facility] Outpatient Attender: Jake Lara MD 8 05:35:00 PM [facility] - 01/13/2018 05:35:00 PM [facility] Outpatient Attender: Sonia GODDARD 06/19/2016 11:00:[address] [facility] Outpatient Attender: Jake Lara MD 09/12/2014 04:56:00 PM [facility] Outpatient Attender: Lawanda Lambert NP 06/27/2014 12:55:[address] [facility] Outpatient Attender: Jake Lara MD 05/31/2013 05:52:00 PM [facility] Outpatient Attender: Jeffrey Garcia MD 12/28/2012 12:50 :00 PM [facility] Outpatient Attender: Lawanda Lambert NP 09/02/2012 08:22:[address] [facility] Outpatient Attender: Lawanda Lambert NP 08/26/2011 02:43:00 PM EDT [facility] Immunizations Vaccine Date Status Description Data Source(s) IIV3. This is one of two codes replacing CVX 15, which is being retired. 11/23/2019 08:55:00 AM EDT completed eCW1 ([facility]) IIV3. This is one of two codes replacing CVX 15, which is being retired. 11/23/2019 08:55:00 AM EDT completed eCW1 ([facility]) IIV3. This is one of two codes replacing CVX 15, which is being retired. 11/23/2019 08:55:00 AM EDT completed eCW1 ([facility]) IIV3. This is one of two codes replacing CVX 15, which is being retired. 11/23/2019 06:40:00 AM EDT completed eCW1 ([facility]) IIV3. This is one of two codes replacing CVX 15, which is being retired. 11/23/2019 06:40:00 AM EDT completed eCW1 ([facility]) IIV3. This is one of two codes replacing CVX 15, which is being retired. 11/23/2019 06:40:00 AM EDT completed eCW1 ([facility]) Medications Medication Brand Name Start Date Product Form Dose Route Admi nistrative Instructions Pharmacy Instructions Status Indications Reaction Description Data Source(s) 20 mg 02/22/2020 12:00:00 AM EST capsule,delayed release (DR/EC) 90 TAKE ONE CAPSULE BY MOUTH EVERY DAY IN THE MORNING TAKE ONE CAPSULE BY MOUTH EVERY DAY IN THE MORNING SOLD: 02/24/2020 [facility] Aluminum Hydroxide 160 MG / magnesium carbonate 105 MG Chewable Tablet Gaviscon Extra Strength 02/22/2020 12:00:00 AM EST ORAL active [facility] ([facility]) Omeprazole 20 MG Delayed Release Oral Capsule Omeprazole 02/22/2020 12:00:00 AM EST ORAL active [facility] ([facility]) 100,000 unit/gram 08/03/2019 12:00:00 AM EDT powder 90 APPLY TO AFFECTED AREA(S) ON SKIN FOLDS TWO TIMES A DAY APPLY TO AFFECTED AREA(S) ON SKIN FOLDS TWO TIMES A DAY SOLD: 08/08/2019 [facility] Nystatin 100 UNT/MG Topical Powder Nystatin 362883 UNI T/GM Nystatin 041631 UNIT/GM 08/02/2019 12:00:00 AM EDT 1.0 {application} active Nystatin 974911 UNIT/GM eCW1 ([facility]) Nystatin 100 UNT/MG Topical Powder Nystatin 972838 UNI T/GM Nystatin 360827 UNIT/GM 08/02/2019 12:00:00 AM EDT 1.0 {application} active Nystatin 202305 UNIT/GM eCW1 ([facility]) Nystatin 100 UNT/MG Topical Powder Nystatin 395813 UNI T/GM Nystatin 099310 UNIT/GM 08/02/2019 12:00:00 AM EDT 1.0 {application} active Nystatin 630804 UNIT/GM eCW1 ([facility]) Nystatin 100 UNT/MG Topical Powder Nystatin 534485 UNI T/GM Nystatin 184655 UNIT/GM 08/02/2019 12:00:00 AM EDT 1.0 {application} active Nystatin 776744 UNIT/GM eCW1 ([facility]) 50 mg 06/16/2019 12:00:00 AM EDT tablet 90 TAKE 1 TABLET BY MOUTH ONCE A DAY TAKE 1 TABLET BY MOUTH ONCE A DAY SOLD: 10/10/2019 [facility] 50 mg 06/16/2019 12:00:00 AM EDT tablet 90 TAKE 1 TABLET BY MOUTH ONCE A DAY TAKE 1 TABLET BY MOUTH ONCE A DAY SOLD: 06/19/2019 [facility] 50 mg 06/16/2019 12:00:00 AM EDT tablet 90 TAKE 1 TABLET BY MOUTH ONCE A DAY TAKE 1 TABLET BY MOUTH ONCE A DAY SOLD: 01/19/2020 [facility] 5 mg 05/16/2019 12:00:00 AM EDT tablet 90 TAKE 1 TABLET BY MOUTH ONCE A DAY TAKE 1 TABLET BY MOUTH ONCE A DAY SOLD: 10/10/2019 [facility] 5 mg 05/16/2019 12:00:00 AM EDT tablet 90 TAKE 1 TABLET BY MOUTH ONCE A DAY TAKE 1 TABLET BY MOUTH ONCE A DAY SOLD: 05/18/2019 [facility] 50 mg 02/10/2019 12:00:00 AM EST tablet 30 TAKE ONE TABLET BY MOUTH EVERY DAY TAKE ONE TABLET BY MOUTH EVERY DAY SOLD: 02/11/2019 [facility] 50 mg 02/10/2019 12:00:00 AM EST tablet 30 TAKE ONE TABLET BY MOUTH EVERY DAY TAKE ONE TABLET BY MOUTH EVERY DAY SOLD: 05/18/2019 [facility] 50 mg 02/10/2019 12:00:00 AM EST tablet 30 TAKE ONE TABLET BY MOUTH EVERY DAY TAKE ONE TABLET BY MOUTH EVERY DAY SOLD: 04/03/2019 [facility] 5 mg 07/13/2018 12:00:00 AM EDT tablet 30 TAKE ONE TABLET BY MOUTH EVERY DAY TAKE ONE TABLET BY MOUTH EVERY DAY SOLD: 02/11/2019 [facility] 5 mg 07/13/2018 12:00:00 AM EDT tablet 30 TAKE ONE TABLET BY MOUTH EVERY DAY TAKE ONE TABLET BY MOUTH EVERY DAY SOLD: 04/03/2019 [facility] Insurance Providers Payer name Policy type / Coverage type Policy ID Covered constitution party ID Covered constitution party's relationship to werner Policy Werner Plan Information [employer] [place] P[place] 302/307 [id number] SP [id number] [place] [place]/307 [id number] SP [id number] [employer] [place] [id number] S YND [id number] [employer] [place] [id number] S YND [id number] [employer] [place] [id number] S YND [id number] [employer] [place] [id number] S YND [id number] [employer] [place] [id number] S VYS [id number] [employer] [place] [id number] S VYS [id number] [employer] UNAVAILABLE S UNAVAILABLE [employer] [place] [id number] S OLU [id number] [employer] [place] [id number] S YND [id number] EXCELLUS BCBS B [id number] S YND [id number] [place] [place] PPO 302/307 [id number] SP [id number] BCBS ESSENTIAL [id number] S YN [id number] ANSI-Commercial [id number] ANSI-Commercial [id number] ANSI-Commercial [id number] ANSI-Commercial [id number] ANSI-Commercial [id number] BS [place] Part B [id number] Self [id number] BS Exchange (Epo,Hmo,Ppo) Commercial [id number] Self [id number] ANSI-Commercial [id number] ANSI-Commercial [id number] ANSI-Commercial [id number] ANSI-Commercial [id number] [employer] [place] [id number] S YND [id number] ANSI-Commercial [id number] ANSI-Commercial [id number] ANSI-Commercial [id number] ANSI-Commercial [id number] ANSI-Commercial [id number] ANSI-Commercial [id number] ANSI-Commercial [id number] ANSI-Commercial [id number] ANSI-Commercial [id number] ANSI-Commercial [id number] BCBS of [facility] Other 0 Self 0 BCBS of [facility] Other 0 Self 0 BCBS of [facility] Other 0 Self 0 BCBS of [facility] Other 0 Self 0 BCBS of [facility] Other 0 Self 0 [employer] [place] PPO 302/307 [id number] SP [id number] BS [place] [employer] [id number] Self [id number] [place] [place] PPO 302/307 [id number] SP [id number] [employer] [place] BC [id number] S VYS [id number] [employer] [place] PPO 302/307 [id number] SP [id number] [employer] [place] PPO 302/307 [id number] SP [id number] [employer] [place] PPO 302/307 [id number] SP [id number] Problems, Conditions, and Diagnoses Code Display Name Description Problem Type Effective Dates Data Source(s) E05.90 [id number] Subclinical hyperthyroidism Problem 06/22/19 12:00:00 AM EDT eCW1 ([facility]) E05.90 [id number] Subclinical hyperthyroidism Problem 06/22/19 12:00:00 AM EDT eCW1 ([facility]) I10 [id number] Essential hypertension Problem 03/09/2019 12 :00:00 AM EST eCW1 ([facility]) I10 50654296 Essential hypertension Problem 03/09/2019 12 :00:00 AM EST eCW1 ([facility]) N20.0 07486401 Nephrolithiasis Problem 03/03/2019 12:00:00 AM EST eCW1 ([facility]) N20.0 40616085 Nephrolithiasis Problem 03/03/2019 12:00:00 AM EST eCW1 ([facility]) R53.82 47430212 Chronic fatigue Problem 02/26/2019 12:00:00 AM EST eCW1 ([facility]) R53.82 73168385 Chronic fatigue Problem 02/26/2019 12:00:00 AM EST eCW1 ([facility]) M79.10 62728779 Myalgia Problem 02/01/2019 12:00:00 AM ES T eCW1 ([facility]) M79.10 81800675 Myalgia Problem 02/01/2019 12:00:00 AM T eCW1 ([facility]) E04.2 Nontoxic multinodular goiter NONTOXIC MULTINODULAR GOI TER Diagnosis 01/29/2020 04:45:00 PM [facility] R04.2 Hemoptysis HEMOPTYSIS Diagnosis 01/29/2020 04:45:00 PM [facility] Z20.828 Contact with and (suspected) exposure to other viral communicable diseases CONTACT W AND EXPOSURE TO OTH VIRAL COMMUNICABLE DISEASES Di agnosis 01/01/2020 02:15:00 PM [facility] E05.90 Thyrotoxicosis, unspecified without thyr otoxic crisis or storm THYROTOXICOSIS, UNSP WITHOUT THYROTOXIC CRISIS OR STORM Diagnosis 10/10/2019 08:00:[address] [facility] D35.02 Benign neoplasm of left adrenal gland BE NIGN NEOPLASM OF LEFT ADRENAL GLAND Diagnosis 04/07/2019 02:40:00 PM [facility] M51.37 Other intervertebral disc degeneration, lumbosacral region OTHER INTERVERTEBRAL DISC DEGENERATION, LUMBOSACRA Diagnosis 0 09:00:00 AM [facility] K76.0 Fatty (change of) liver, not elsewhere c lassified FATTY (CHANGE OF) LIVER, NOT ELSEWHERE CLASSIFIED Diagnosis 03/16/2019 09:00:00 AM [facility] R93.5 Abnormal findings on diagnos tic imaging of other abdominal regions, including retroperitoneum ABN FINDINGS ON DX IMAGING OF ABD REGIONS, INC RET Diagnosis 03/16/2019 09:00:00 AM [facility] N20.0 Calculus of kidney CALCULUS OF KIDNEY Diagnosis 09:00:00 AM [facility] N28.1 Cyst of kidney, acquired CYST OF KIDNEY, ACQUIRED Diag nosis 03/16/2019 09:00:00 AM [facility] I10 Essential (primary) hypertension ESSENTIAL (PRIMARY) H YPERTENSION Diagnosis 03/15/2019 08:18:00 AM [facility] R31.29 OTHER MICROSCOPIC HEMATURIA OTHER MICROSCOPIC HEMATURI A Diagnosis 03/01/2019 10:00:00 AM [facility] Results ID Date Data Source [id number] 02/28/2020 10:00:00 AM [facility] Name Value Range Interpretation Code Description Data Kimber rce(s) Supporting Document(s) SARS coronavirus 2 RNA Not Detected [facility] This lab was ordered by [facility] and reported by [email or web address]. ID Date Data Source [id number] 01/29/2020 05:45:00 PM EST [facility] PROCEDURE: THYROID DATE AND TIME: 2019 16:49 EST HISTORY: Thyroid nodules COMPARISON: Thyroid ultrasound 01/13/2018 TECHNIQUE: Sonography of the thyroid gland was performed. FINDINGS: The right thyroid lobe measures 5.3 x 1.5 x 2.1 cm and the leftthyroid lobe measures 5.3 x 2.2 x 2.3 cm. Multiple nodules noted bilaterally,largest in the right thyroid lobe in the midpole which is hypoechoic and mixedsolid and cystic measuring 8 x 5 x 6 mm, previously 7 x 7 x 4 mm, and largest inthe left thyroid lobe inferiorly which is solid and isoechoic measuring 14 x 13x 9 mm, previously 13 x 11 x 8 mm. Heterogeneous thyroid gland. Normalvascularity of the thyroid gland. No adenopathy. IMPRESSION: No significant change in multinodular goiter since 01/13/2018thyroid ultrasound, with largest, solid nodule in the inferior left thyroid lobemeasuring up to 14 mm, previously 13 mm. Recommend biopsy of this nodule if notpreviously performed. Electronically signed in PS360 by: Shaheen Edmonds 01/29/2020 17:39 EST Name Value Range Interpretation Code Description Data Kimber rce(s) Supporting Document(s) ID Date Data Source [id number] 01/02/2020 08:05:00 PM EST [facility] Name Value Range Interpretation Code Description Data Kimber rce(s) Supporting Document(s) SARS-CoV-2, KIM Detected Not Detected Abnormal (applies to non- numeric results) [facility] This nucleic acid amplification test was developed and its performancecharacteristics determined by [employer]. Nucleic acidamplification tests include PCR and TMA. This test has not been FDAcleared or approved. This test has been authorized by FDA under anEmergency Use Authorization (EUA). This test is only authorized forthe duration of time the declaration that circumstances existjustifying the authorization of the emergency use of in vitrodiagnostic tests for detection of SARS-CoV-2 virus and/or diagnosisof COVID-19 infection under section 564(b)(1) of the Act, 21 U.S.C.360bbb-3(b) (1), unless the authorization is terminated or revokedsooner.When diagnostic testing is negative, the possibility of a falsenegative result should be considered in the context of a patient'srecent exposures and the presence of clinical signs and symptomsconsistent with COVID- 19. An individual without symptoms of COVID-19and who is not shedding SARS-CoV-2 virus would expect to have anegative (not detected) result in this assay. ID Date Data Source [id number] 01/01/2020 02:00:00 PM EST [facility] Name Value Range Interpretation Code Description Data Kimber rce(s) Supporting Document(s) SARS coronavirus 2 RNA [facility] This lab was ordered by [facility] nd reported by [facility]. ID Date Data Source [id number] 01/02/2020 08:06:00 PM EST [facility] Name Value Range Interpretation Code Description Data Kimber rce(s) Supporting Document(s) SARS COV2 [facility] Detected Not Detected [facility] This nucleic acid amplification test was developed and itsperformance characteristics determined by [facility]. Nucleic acid amplification tests include PCRand TMA. This test has not been FDA cleared or approved.This test has been authorized by FDA under an Emergency UseAuthorization (EUA). This test is only authorized forthe duration of time the declaration that circumstancesexist justifying the authorization of the emergency use ofin vitro diagnostic tests for detection of SARS-CoV-2 virusand/or diagnosis of COVID-19 infection under (b)(1) of the Act, 21 U.S.C. 360bbb-3(b) (1), unless theauthorization is terminated or revoked sooner.When diagnostic testing is negative, the possibility of afalse negative result should be considered in the contextof a patient's recent exposures and the presence ofclinical signs and symptoms consistent with COVID-19. Anindividual without symptoms of COVID-19 and who is notshedding SARS-CoV-2 virus would expect to have a negative(not detected) result in this assay.Performed at: [address], [place], [place] [id number] Director: Amna Unger PhD, Phone: [phone] ID Date Data Source [id number] 10/12/2019 10:05:00 AM EDT [facility] Name Value Range Interpretation Code Description Data Kimber rce(s) Supporting Document(s) TRIIODOTHYRONINE,FREE,SERUM 2.8 pg/mL 2.0-4.4 [facility] Performed at: RN - [facility] [address] [id number] Director: Miri Alfred MD, Phone: [phone] ID Date Data Source [id number] 10/12/2019 10:05:00 AM EDT [facility] Name Value Range Interpretation Code Description Data Kimber rce(s) Supporting Document(s) Triiodothyronine (T3), Free 2.8 pg/mL 2.0-4.4 [facility] ID Date Data Source [id number] 10/10/2019 09:11:00 AM EDT [facility] Name Value Range Interpretation Code Description Data Kimber rce(s) Supporting Document(s) TSH 0.32 uIU/mL 0.36-3.74 [facility] ID Date Data Source [id number] 10/10/2019 09:11:00 AM EDT [facility] Name Value Range Interpretation Code Description Data Kimber rce(s) Supporting Document(s) FREE T4 0.76 ng/dL 0.76-1.46 [facility] ID Date Data Source FREE T4 & TSH PANEL 06/20/2019 12:00:00 AM EDT eCW1 ([facility]) Name Value Range Interpretation Code Description Data Kimber rce(s) Supporting Document(s) 0.231 0.358-3.740 THYROID STIMULATING HORM ONE eCW1 ([facility]) 0.95 0.76-1.46 FREE T4 [facility] ID Date Data Source FREE T3 06/20/2019 12:00:00 AM EDT eCW1 ([facility]) Name Value Range Interpretation Code Description Data Kimber rce(s) Supporting Document(s) 3.0 2.2-4.0 FREE T3 eCW1 ([facility]) ID Date Data Source [id number] 03/16/2019 10:04:00 AM EST [facility] DATE OF EXAMINATION: 03/16/2019 8:45 EST ABD/PEL W WO IV CONTRAST HISTORY: Nephrolithiasis TECHNIQUE: This CT exam was performed using the following dose reduction techniques:automated exposure control, adjustment of mA and/or kV according to thepatient's size, and use of iterative reconstruction technique. Standard contiguous axial spiral imaging was obtained from the dome of thediaphragms through the symphysis pubis without oral contrast and withoutfollowed with intravenous contrast administration and with coronal reformatting. FINDINGS: Lower thorax: Unremarkable ABDOMEN: Liver: Moderate fatty infiltrationGallbladder and bile ducts: UnremarkablePancreas: UnremarkableSpleen: UnremarkableAdrenals: There is a 1.2 cm hypodense nodule involving the lateral limb of theleft adrenal gland with indeterminate Hounsfield units. Although statisticallyspeaking this is likely credit and collections representative of a benign adenoma solid neoplasticprocess is not excluded. Therefore in/out of phase adrenal MRI is recommended.Kidneys and ureters: This 2 cysts in the upper pole of the right kidneymeasuring 1-1 0.5 cm as well as 5 cysts of the left kidney largest in theposterior aspect of mid pole measuring 1.5 cm. No stones or hydronephrosis. Bothkidneys are normal in size contour and orientationStomach and bowel: Small hiatal herniaAppendix: Unremarkable PELVIS: Bladder: UnremarkableReproductive: Not seen No free fluid or lymphadenopathy IMPRESSION: Bilateral renal cysts as described above. Nodule of the left adrenal gland warrants further evaluation with in/out ofphase adrenal MRI. Moderate fatty infiltration of liver. Moderate degenerative changes of lumbosacral spine. Moderate diffuse fatty infiltration of liver. Electronically signed in [id number] by: Mauro Krishna M.D. 03/16/2019 9:58 EST Name Value Range Interpretation Code Description Data Kimber rce(s) Supporting Document(s) ID Date Data Source [id number] 03/15/2019 08:50:00 AM EST [facility] Name Value Range Interpretation Code Description Data Kimber rce(s) Supporting Document(s) GLUCOSE 101 mg/dL 74-106 [facility] BLOOD UREA NITROGEN 22 mg/dL 7-18 H [facility] ital CREATININE 0.7 mg/dL 0.6-1.0 [facility] SODIUM 149 mmol/L 136-145 H [facility] POTASSIUM 4.4 mmol/L 3.5-5.1 [facility] CHLORIDE 110 mmol/L 98-107 H [facility] CO2 29 mmol/L 21-32 [facility] CALCIUM 9.1 mg/dL 8.5-10.1 [facility] ANION GAP 10.0 mmol/L 5-12 [facility] GLOMERULAR FILTRATION RATE 86 mL/min [facility] GFR IS CALCULATED IN mL/min/1.73m2 DARRYL L FUNCTION: >90MILDLY DECREASED: 60-89MILDY TO MODERATELY DECREASED: 45-59 MODERATELY TO SEVERELY DECREASED: 30-44SEVERELY DECREASED: 15-29RENAL FAILURE: <15 ID Date Data Source [id number] 03/01/2019 10:52:00 AM [facility] DATE OF EXAMINATION: 03/01/2019 9:56 EST US ABDOMINAL COMPLETE COMPARED TO: No priors HISTORY: Microhematuria Real-time ultrasound imaging was performed utilizing B-mode/martin scale and colorDoppler imaging where applicable. The liver displays a normal homogeneous echotexture throughout. There is nointra or extrahepatic biliary dilation. The gallbladder appears normal,revealing no signs of gallstones or gallbladder wall thickening. The common bileduct measures 5mm. The right kidney measures 10.8cm and the left kidney .6cm longitudinally. There is a 1.5 cm simple cyst in the mid pole of rightkidney as well as 2 simple cyst of the left kidney each measuring approximately1.5 cm. Both kidneys display normal homogeneous echotexture throughout and showno hydronephrosis. The visualized portions of the pancreas, spleen, theabdominal aorta and IVC are normal in appearance. IMPRESSION: 2 simple cysts of left kidney as well as one simple cysts of left kidney allmeasuring approximately 1.5 cm. Electronically signed in PS360 by: Mauro Krishna M.D. 03/01/2019 10:46 EST Name Value Range Interpretation Code Description Data Kimber rce(s) Supporting Document(s) ID Date Data Source [id number] 02/06/2019 01:47:00 PM [facility] Patient Name: LINDA OLSEN : 1960 Sex: F Pt Unit #: [id number] Location:AMB.DERM Provider: Visit Date/Time: 02/06/19 Primary Insurance: /[facility] Secondary Insurance: Self Pay Intake Vital Signs 02/06/19 13:52 BP 140/98 Blood Pressure Location Lt brachial Position Sitting Pulse 79 Pulse Strength Normal Pulse Oximetry (%) 98 Oxygen Delivery Method room air Intake Visit Reasons: Lesion assessment Is patient in pain?: No Allergies No Known Drug Allergies Allergy (Verified 02/06/19 13:56) Medications bisoprolol fumarate 5 mg PO DAILY cholecalciferol (vitamin D3) (Vitamin D3) 400 units PO clotrimazole- betamethasone 1-0.05 % (Lotrisone) 1 SM.AMT TP BID esomeprazole magnesium (Nexium 24HR) 20 mg PO sertraline 50 mg PO DAILY tretinoin 0.025% 1 SM.AMT TP HS Patient : No PFSH - Derm Medical History Cone-kathi dystrophy (Acute) Surgical History History of hysterectomy (Acute) Hx of tonsillectomy (Acute) Hx of tubal ligation (Acute) Pertinent Past History Pertinent Past History Previous skin cancer: actinic keratosis Family history of nonmelanoma skin cancer: Yes Family history with melanoma: No Pertinent Social History: sunscreen use Date of last full body scan:: 04/28/18 Dermatology HPI History of Present Illness Details:: patient had multiple AKs on forhead treated last visit, all healed well. Current Symptoms Chief Complaint:: Lesion Assessment Location: other (Right helix) Duration: months (since october ) Symptoms: other (crusty/scaly, tender ) Severity of symptoms: mild Treatments tried: OTC lotions, LN2 to similar lesions in the past. Treatment response: no change Skin care goals for today' visit: None per patient. Contacts/family history of similar?: No Dermatology ROS Constituitional Reports system reviewed and no additional complaints, except as documented Psych Reports system reviewed and no additional complaints, except as documented Dermatology Exam Constitutional General appearance: comfortable Orientation Orientation: alert and oriented x 3 Skin Skin exam performed including: face, eyelids, nose, lips, neck, chest, right arm, right hand, fingers, left arm and left hand Adult Head Front + Back: 1. AK 2. AKs x 2 3. AKs x 3 Psych Appearance: grossly normal Mental Status: mental status grossly normal Speech and Movement: speech and movement normal Mood: congruent mood Affect: normal affect Attitude: cooperative Thought Content: normal Insight: insight good Judgment: judgment good Office Procedures Liquid Nitrogen Cryotherapy Details: LN2 cryotherapy performed in office today to AKs x6. Cryocare instructions given. ABN and Consent form signed. Treatment options, risks, benefits, and side effects reviewed (including but not limited to: scar, infection, pain, need for repeat treatment). Patient instructed to contact the office if the lesiondoes not completely resolve after treatment/recurs. Assessment Plan Assessment Plan (1) Actinic keratoses: Status: Acute Code(s): L57.0 - Actinic keratosis SNOMED Code(s): 829311315 Category: Medical Plan - KASEY Ravi: CRYO Orders Follow Up: Keep appt in June Electronically Signed By: <Electronically signed by Ana PARKS> Date/Time Signed: 02/06/19 1405 Name Value Range Interpretation Code Description Data Kimber rce(s) Supporting Document(s) Procedure Social History Code Duration Value Status Description Data Source(s ) Smoking 12/29/2019 12:00:00 AM EST Never Smoker completed Never S moker eCW1 ([facility]) Smoking 12/29/2019 12:00:00 AM EST Never Smoker completed Never S moker eCW1 ([facility]) Smoking 12/29/2019 12:00:00 AM EST Never Smoker completed Never S moker eCW1 ([facility]) Smoking 08/02/2019 12:00:00 AM EDT Never Smoker completed Never S moker eCW1 ([facility]) Vital Signs ID Date Data Source UNK Name Value Range Interpretation Code Description Data Source(s) Body temperature 97.3 [degF] 97.3 [degF] MEDENT ([facility]) Body weight 71.215 kg 71.215 kg MEDENT ([facility]) Body mass index (BMI) [Ratio] 29.7 kg/m2 29.7 k g/m2 MEDENT ([facility]) Heart rate 68 /min 68 /min MEDENT ([facility]) Diastolic blood pressure 87 mm[Hg] 87 mm[Hg] MEDENT ([facility]) Systolic blood pressure 128 mm[Hg] 128 mm[Hg] M EDENT ([facility]) Body weight 157.00 [lb_av] 157.00 [lb_av] MEDEN T ([facility]) Body height 61 [in_i] 61 [in_i] [facility]ENT [facility]) 5'1" Diastolic blood pressure 75 mm[Hg] 75 mm[Hg] eCW1 ([facility]) Systolic blood pressure 126 mm[Hg] 126 mm[Hg] e CW1 ([facility]) Body temperature 97.8 [degF] 97.8 [degF] eCW1 ( [facility]) Respiratory rate 18 /min 18 /min eCW1 ([facility]) Heart rate 66 /min 66 /min eCW1 ([facility]) Body mass index (BMI) [Ratio] 29.83 kg/m2 29.83 kg/m2 eCW1 ([facility]) Body height 62 [in_i] 62 [in_i] eCW1 ([facility]) Body weight 163.12 [lb_av] 163.12 [lb_av] eCW1 ([facility]) Diastolic blood pressure 70 mm[Hg] 70 mm[Hg] eCW1 ([facility]) Systolic blood pressure 122 mm[Hg] 122 mm[Hg] e CW1 ([facility]) Body mass index (BMI) [Ratio] 29.77 kg/m2 29.77 kg/m2 eCW1 ([facility]) Body height 62 [in_i] 62 [in_i] eCW1 ([facility]) Body weight 162.8 [lb_av] 162.8 [lb_av] eCW1 ([facility]) Diastolic blood pressure 76 mm[Hg] 76 mm[Hg] eCW1 ([facility]) Systolic blood pressure 122 mm[Hg] 122 mm[Hg] e CW1 ([facility]) Body mass index (BMI) [Ratio] 29.44 kg/m2 29.44 kg/m2 eCW1 ([facility]) Body height 62 [in_us] 62 [in_us] eCW1 ([facility]) Body weight Measured 161 [lb_av] 161 [lb_av] eC W1 ([facility]) Diastolic blood pressure 74 mm[Hg] 74 mm[Hg] eCW1 ([facility]) Systolic blood pressure 118 mm[Hg] 118 mm[Hg] e CW1 ([facility]) Body temperature 98.7 [degF] 98.7 [degF] eCW1 ( [facility]) Respiratory rate 18 /min 18 /min eCW1 ([facility]) Heart rate 76 /min 76 /min eCW1 ([facility]) Body mass index (BMI) [Ratio] 29.26 kg/m2 29.26 kg/m2 eCW1 ([facility]) Body height 62 [in_us] 62 [in_us] eCW1 ([facility]) Body weight Measured 160 [lb_av] 160 [lb_av] eC W1 ([facility]) Deprecated Oxygen saturation in Capillary blood by Oximetry 98 % 98 % eCW1 ([facility]) Respiratory rate 16 /min 16 /min eCW1 ([facility]) Heart rate 65 /min 65 /min eCW1 ([facility]) Body temperature 97.6 [degF] 97.6 [degF] eCW1 ( [facility]) Body mass index (BMI) [Ratio] 29.44 kg/m2 29.44 kg/m2 eCW1 ([facility]) Body weight Measured 158.4 [lb_av] 158.4 [lb_av ] eCW1 ([facility]) Body height 61.5 [in_us] 61.5 [in_us] eCW1 ([facility]) Oxygen saturation in Arterial blood by Pulse oximetry 99 % 99 % eCW1 ([facility]) Respiratory rate 16 /min 16 /min eCW1 ([facility]) Heart rate 75 /min 75 /min eCW1 ([facility]) Body temperature 97.5 [degF] 97.5 [degF] eCW1 ( [facility]) Body mass index (BMI) [Ratio] 29.74 kg/m2 29.74 kg/m2 eCW1 ([facility]) Body weight 160.0 [lb_av] 160.0 [lb_av] eCW1 ([facility]) Body height 61.5 [in_i] 61.5 [in_i] eCW1 ([facility]) Diastolic blood pressure 72 mm[Hg] 72 mm[Hg] eCW1 ([facility]) Systolic blood pressure 112 mm[Hg] 112 mm[Hg] e CW1 ([facility]) Body temperature 97.3 [degF] 97.3 [degF] eCW1 ( [facility]) Respiratory rate 18 /min 18 /min eCW1 ([facility]) Heart rate 69 /min 69 /min eCW1 ([facility]) Body mass index (BMI) [Ratio] 29.48 kg/m2 29.48 kg/m2 eCW1 ([facility]) Body height 62 [in_us] 62 [in_us] eCW1 ([facility]) Body weight Measured 161.2 [lb_av] 161.2 [lb_av ] eCW1 ([facility]) Patient Treatment Plan of Care Planned Activity Planned Date Details Description Data Source (s) Nystatin 100 UNT/MG Topical Powder 08/02/2019 12:00:00 AM EDT eCW1 ([facility]) Nystatin 100 UNT/MG Topical Powder 08/02/2019 12:00:00 AM EDT eCW1 ([facility]) Nystatin 100 UNT/MG Topical Powder 08/02/2019 12:00:00 AM EDT eCW1 ([facility]) Nystatin 100 UNT/MG Topical Powder 08/02/2019 12:00:00 AM EDT eCW1 ([facility])
[2020-03-04] MEDS ORDERED: propofoL 200 MG/20 ML VIAL As Ordered ONE (11:00)
--- NOTE | 2020-03-04 11:00 | ROOR ---
Patient Name: Rosalia Olsen Procedure Date: 03/04/2020 10:44 AM Date of : 1960 Age: 59 Room: [facility] Gender: Female Note Status: Finalized Procedure: Upper Endoscopy + Biopsies Indications: Heartburn, Exclusion of Ramsey's esophagus Providers: German Patino MD Referring MD: Jake Lara MD Requesting Provider: Medicines: Monitored Anesthesia Care Complications: No immediate complications. Procedure: Pre-Anesthesia Assessment: - The heart rate, respiratory rate, oxygen saturations, blood pressure, adequacy of pulmonary ventilation, and response to care were monitored throughout the procedure. The Endoscope was introduced through the mouth, and advanced to the second part of duodenum. The upper GI endoscopy was accomplished without difficulty. The patient tolerated the procedure well. Findings: The Z-line was variable and was found 40 cm from the incisors. Multiple biopsies were obtained with cold forceps for evaluation to rule out Ramsey's Esophagus randomly at the gastroesophageal junction. A small hiatal hernia was present. No other significant abnormalities were identified in a careful examination of the stomach. The exam of the duodenum was otherwise normal. Impression: - Z-line variable, 40 cm from the incisors. - Small hiatal hernia. - Multiple biopsies were obtained at the gastroesophageal junction. - The examination was otherwise normal. Recommendation: - Patient has a contact number available for emergencies. The signs and symptoms of potential delayed complications were discussed with the patient. Return to normal activities tomorrow. Written discharge instructions were provided to the patient. - High fiber diet. - Discharge patient to home. - Follow an antireflux regimen. - Continue present medications. - Await pathology results. - Telephone GI clinic for pathology results in 1 week. - Return to referring physician. - Repeat upper endoscopy for surveillance based on pathology results. - The findings and recommendations were discussed with the patient. Procedure Code(s): --- Professional --- 56094, Esophagogastroduodenoscopy, flexible, transoral; with biopsy, single or multiple Diagnosis Code(s): --- Professional --- K22.8, Other specified diseases of esophagus K44.9, Diaphragmatic hernia without obstruction or gangrene R12, Heartburn CPT copyright 2019 [employer]. All rights reserved. The codes documented in this report are preliminary and upon lofter review may be revised to meet current compliance requirements. German Patino MD German Patino MD 03/04/2020 11:00:23 AM Electronically signed by German Patino MD Number of Addenda: 0 Note Initiated On: 03/04/2020 10:44 AM Estimated Blood Loss: Estimated blood loss: none.
[2020-03-04 11:15] VITALS: BP 113/61
== END 2020-03-04 11:20 | disposition home or self-care (01) ==
LOC: M OPP 09:48
PROVIDERS: ATTEND Internal Medicine Gastroenterology
DX: R12 Heartburn (principal); K22.8 Other specified diseases of esophagus; K44.9 Diaphragmatic hernia without obstruction or gangrene

== ENCOUNTER → 2020-04-26 | Outpatient (REF) | payer BC ==
[~2020-04-26] MED LIST changes: -NS 1,000 ML IV ONE
[2020-04-26 13:37] LABS: HEMATOCRIT 41.3 % (36.0-47.0); HEMOGLOBIN 13.1 g/dl (12.0-15.5); MEAN CORPUSCULAR HEMOGLOBIN 29.5 pg (27.0-33.0); MEAN CORPUSCULAR HGB CONC 31.7 g/dl (32.0-36.5); PLATELET COUNT, AUTOMATED 198 10^3/uL (150-450); RED BLOOD COUNT 4.44 10^6/uL (4.00-5.40)
[2020-04-26 13:57] LABS: ALT/SGPT 23 U/L (12-78); BILIRUBIN,TOTAL 0.3 MG/DL (0.2-1.0); BLOOD UREA NITROGEN 23 MG/DL (7-18); CALCIUM LEVEL 9.3 MG/DL (8.5-10.1); CARBON DIOXIDE LEVEL 31 MEQ/L (21-32); CHLORIDE LEVEL 111 MEQ/L (98-107); CREATININE FOR GFR 0.89 MG/DL (0.55-1.30); FREE T3 2.7 PG/ML (2.2-4.0); FREE T4 0.84 NG/DL (0.76-1.46); GLOMERULAR FILTRATION RATE > 60.0 (>51); GLUCOSE, FASTING 99 MG/DL (70-100); POTASSIUM SERUM 4.2 MEQ/L (3.5-5.1); SODIUM LEVEL 145 MEQ/L (136-145); THYROID STIMULATING HORMONE 0.523 uIU/ML (0.358-3.740)
[2020-04-26 14:10] LABS: ERYTHROCYTE SEDIMENTATION RATE 15 mm/hr (0-30)
== END ==
LOC: M SFHCCLAY 07:36
PROVIDERS: ATTEND Family Medicine
DX: L65.0 Telogen effluvium (principal)

== ENCOUNTER → 2020-06-24 | Outpatient (REF) | payer BC ==
[2020-06-24 12:29] LABS: ALBUMIN 3.7 GM/DL (3.2-5.2); ALT/SGPT 29 U/L (12-78); BILIRUBIN,TOTAL 0.3 MG/DL (0.2-1.0); BLOOD UREA NITROGEN 18 MG/DL (7-18); CALCIUM LEVEL 8.8 MG/DL (8.5-10.1); CARBON DIOXIDE LEVEL 29 MEQ/L (21-32); CHLORIDE LEVEL 111 MEQ/L (98-107); FREE T3 2.9 PG/ML (2.2-4.0); FREE T4 0.87 NG/DL (0.76-1.46); GLOMERULAR FILTRATION RATE > 60.0 (>51); GLUCOSE, FASTING 99 MG/DL (70-100); POTASSIUM SERUM 4.1 MEQ/L (3.5-5.1); SODIUM LEVEL 144 MEQ/L (136-145); THYROID PEROXIDASE ANTIBODY < 28.0 U/ML (<60.0); THYROID STIMULATING HORMONE 0.514 uIU/ML (0.358-3.740); TOTAL PROTEIN 6.5 GM/DL (6.4-8.2)
[2020-06-25 14:02] LABS: ALPHA-1-GLOBULINS 0.26 GM/DL (0.17-0.41); ALPHA-2-GLOBULINS 0.53 GM/DL (0.42-0.99); ALPHA-2-GLOBULINS % 8.1 % (7.1-11.8); BETA-1-GLOBULINS % 6.2 % (4.7-7.2); BETA-2-GLOBULINS 0.31 GM/DL (0.19-0.55); BETA-2-GLOBULINS % 4.7 % (3.2-6.5); GAMMA GLOBULINS 0.91 GM/DL (0.65-1.58)
== END ==
LOC: M SFHCCLAY 07:59
PROVIDERS: ATTEND Family Medicine
DX: E05.90 Thyrotoxicosis, unspecified without thyrotoxic crisis or storm (principal); I10 Essential (primary) hypertension; D89.2 Hypergammaglobulinemia, unspecified

== ENCOUNTER → 2020-07-01 | Outpatient (CLI) | payer BC ==
--- NOTE | 2020-07-01 15:54 | REPMRS ---
Patient History The patient states she had a clinical breast exam on 07-01-2020 Family history of ovarian cancer under age 50 in paternal grandmother. No Hormone Replacement Therapy Patient states no breast complaints today. Patient has signed MRS History Sheet. Digital Woman Screen Mammo: July 01, 2020 - Exam #: [id number] Bilateral CC and MLO view(s) were taken. 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 June 28, 2018, bilateral digital woman screen mammo performed at [facility]. January 04, 2017, digital woman screen mammo performed at [facility]. FINDINGS: The breast tissue is almost entirely fat. The Volpara volumetric breast density category is: A. There has been no change in the appearance of the mammogram from the prior studies. There is no interval development of dominant mass, architectural distortion, or grouped microcalcification typical of malignancy. 3-D tomosynthesis shows no additional findings. Assessment: BI-RADS/ACR category 1 mammogram. Negative Mammogram. Recommendation Routine screening mammogram of both breasts in 1 year (for women over age 40). This patient's [facility] Lifetime Breast Cancer RIsk is estimated at 8.6 %. This mammogram was interpreted with the aid of an FDA-approved computer-aided dectection system. Electronically Signed By: Rob Ken MD 07/01/20 8222
== END ==
LOC: M WHC 14:21
PROVIDERS: ATTEND Nurse Practitioner Family
DX: Z12.31 Encounter for screening mammogram for malignant neoplasm of breast (principal)

== ENCOUNTER → 2021-01-15 | Outpatient (CLI) | payer BC ==
[~2021-01-15] MED LIST changes: +OMEP-173 PO; -OMEP-218 PO
== END ==
LOC: M CLY 09:44
PROVIDERS: ATTEND Family Medicine
DX: M25.50 Pain in unspecified joint (principal)

== ENCOUNTER → 2021-05-30 | Outpatient (CLI) | payer BC ==
[2021-05-30 11:09] LABS: HEMATOCRIT 42.2 % (36.0-47.0); HEMOGLOBIN 13.8 g/dl (12.0-15.5); MEAN CORPUSCULAR HEMOGLOBIN 30.5 pg (27.0-33.0); MEAN CORPUSCULAR HGB CONC 32.7 g/dl (32.0-36.5); MEAN CORPUSCULAR VOLUME 93.2 fl (80.0-96.0); PLATELET COUNT, AUTOMATED 192 10^3/uL (150-450); RED BLOOD COUNT 4.53 10^6/uL (4.00-5.40); WHITE BLOOD COUNT 6.6 10^3/uL (4.0-10.0)
[2021-05-30 11:54] LABS: ALT/SGPT 29 U/L (12-78); BILIRUBIN,TOTAL 0.4 MG/DL (0.2-1.0); BLOOD UREA NITROGEN 19 MG/DL (7-18); CALCIUM LEVEL 9.2 MG/DL (8.5-10.1); CARBON DIOXIDE LEVEL 30 MEQ/L (21-32); CHLORIDE LEVEL 110 MEQ/L (98-107); CREATININE FOR GFR 0.76 MG/DL (0.55-1.30); GLOMERULAR FILTRATION RATE > 60.0 (>51); GLUCOSE, FASTING 92 MG/DL (70-100); IRON (FE) 73 UG/DL (50-170); POTASSIUM SERUM 4.6 MEQ/L (3.5-5.1); SODIUM LEVEL 143 MEQ/L (136-145); TOTAL IRON BINDING CAPACITY 332 UG/DL (250-450); TOTAL PROTEIN 7.1 GM/DL (6.4-8.2)
== END ==
LOC: M LAB 09:12
PROVIDERS: ATTEND Family Medicine
DX: R19.5 Other fecal abnormalities (principal)

== ENCOUNTER → 2021-06-13 | Outpatient (CLI) | payer BC | LOC: M LABSMTC 09:42 | PROVIDERS: ATTEND Anesthesiology | DX: Z01.812 Encounter for preprocedural laboratory examination (principal); Z20.822 Contact with and (suspected) exposure to COVID-19 ==

== ENCOUNTER 2021-06-18 11:15 | Day surgery (SDC) | payer BC ==
[~2021-06-18] VITALS: Ht 157.5 cm; Wt 69.8 kg
[~2021-06-18 11:15] MED LIST changes: +NS 1,000 ML IV ONE
[2021-06-18] MEDS ORDERED: propofoL 200 MG/20 ML VIAL As Ordered ONE ×2 (12:40→12:55)
[2021-06-18] MEDS ORDERED: LIDOCAINE 2% 100MG/5ML SDV (FOR ANES.) As Ordered ONE (12:41)
[2021-06-18 13:50] VITALS: BP 125/62
== END 2021-06-18 13:50 | disposition home or self-care (01) ==
LOC: M OPP 11:15
PROVIDERS: ATTEND Surgery
DX: R19.5 Other fecal abnormalities (principal); D12.6 Benign neoplasm of colon, unspecified; K64.4 Residual hemorrhoidal skin tags; K57.30 Diverticulosis of large intestine without perforation or abscess without bleeding; I10 Essential (primary) hypertension; K21.9 Gastro-esophageal reflux disease without esophagitis; F32.A Depression, unspecified; Z88.8 Allergy status to other drugs, medicaments and biological substances; Z79.899 Other long term (current) drug therapy

== ENCOUNTER → 2021-06-25 | Outpatient (REF) | payer BC ==
[~2021-06-25] MED LIST changes: -NS 1,000 ML IV ONE
[2021-06-25 11:39] LABS: HEMATOCRIT 40.8 % (36.0-47.0); HEMOGLOBIN 13.2 g/dl (12.0-15.5); MEAN CORPUSCULAR HEMOGLOBIN 30.5 pg (27.0-33.0); MEAN CORPUSCULAR HGB CONC 32.4 g/dl (32.0-36.5); MEAN CORPUSCULAR VOLUME 94.2 fl (80.0-96.0); PLATELET COUNT, AUTOMATED 223 10^3/uL (150-450); RED BLOOD COUNT 4.33 10^6/uL (4.00-5.40)
[2021-06-25 12:28] LABS: ALBUMIN 3.6 GM/DL (3.2-5.2); ALT/SGPT 25 U/L (12-78); BILIRUBIN,TOTAL 0.2 MG/DL (0.2-1.0); BLOOD UREA NITROGEN 20 MG/DL (7-18); CALCIUM LEVEL 9.4 MG/DL (8.5-10.1); CARBON DIOXIDE LEVEL 30 MEQ/L (21-32); CHLORIDE LEVEL 112 MEQ/L (98-107); CHOLESTEROL LEVEL 248 MG/DL (<200); CHOLESTEROL RISK RATIO 5.061 (<5); CREATININE FOR GFR 0.82 MG/DL (0.55-1.30); FERRITIN 54 NG/ML (8-252); FREE T4 0.89 NG/DL (0.76-1.46); GLOMERULAR FILTRATION RATE > 60.0 (>51); GLUCOSE, FASTING 97 MG/DL (70-100); HDL CHOLESTEROL 49 MG/DL (>40); IRON (FE) 68 UG/DL (50-170); LDL CHOLESTEROL 172 MG/DL (<100); NON-HDL-C 199 MG/DL; PERCENT SATURATION 21.3 % (13.2-45.0); POTASSIUM SERUM 4.8 MEQ/L (3.5-5.1); SODIUM LEVEL 145 MEQ/L (136-145); THYROID STIMULATING HORMONE 0.303 uIU/ML (0.358-3.740); TOTAL IRON BINDING CAPACITY 320 UG/DL (250-450); TOTAL PROTEIN 6.7 GM/DL (6.4-8.2); TRIGLYCERIDES LEVEL 133 MG/DL (<150)
== END ==
LOC: M SFHCCLAY 08:20
PROVIDERS: ATTEND Family Medicine
DX: K92.1 Melena (principal); E78.00 Pure hypercholesterolemia, unspecified

== ENCOUNTER → 2021-06-25 | Outpatient (CLI) | payer BC | LOC: M CLY 08:23 | PROVIDERS: ATTEND Family Medicine | DX: M43.06 Spondylolysis, lumbar region (principal); N28.1 Cyst of kidney, acquired; M25.561 Pain in right knee; M25.562 Pain in left knee ==

== ENCOUNTER → 2021-07-11 | Outpatient (CLI) | payer BC ==
[2021-07-11 08:23] LABS: BASO % 0.6 % (0.0-1.0); EOS # 0.1 10^3/uL (0.0-0.5); EOS % 2.3 % (0.0-3.0); LYMPH # 1.8 10^3/uL (1.5-5.0); LYMPH % 37.6 % (24.0-44.0); MEAN CORPUSCULAR HEMOGLOBIN 30.3 pg (27.0-33.0); MEAN CORPUSCULAR HGB CONC 32.5 g/dl (32.0-36.5); MEAN CORPUSCULAR VOLUME 93.2 fl (80.0-96.0); MONO # 0.4 10^3/uL (0.0-0.8); MONO % 8.2 % (2.0-8.0); NEUTROPHILS # 2.4 10^3/uL (1.5-8.5); NEUTROPHILS % 51.1 % (36.0-66.0); PLATELET COUNT, AUTOMATED 178 10^3/uL (150-450); RED BLOOD COUNT 4.29 10^6/uL (4.00-5.40); WHITE BLOOD COUNT 4.7 10^3/uL (4.0-10.0)
[2021-07-11 08:44] LABS: C REACTIVE PROTEIN QUANTITATIV < 0.30 MG/DL (0.00-0.30); RHEUMATOID FACTOR QUANT < 10.0 IU/ML (<15.0); URIC ACID 4.3 MG/DL (2.6-6.0)
[2021-07-11 10:34] LABS: ERYTHROCYTE SEDIMENTATION RATE 15 mm/hr (0-30)
[2021-07-12 15:07] LABS: ANTI DOUBLE STRAND-DNA AB 11 IU/mL (0-9); ANTINUCLEAR ANTIBODIES DIRECT Positive (Negative); RNP ANTIBODIES 0.6 AI (0.0-0.9); SJOGREN'S ANTI SS-A <0.2 AI (0.0-0.9); SJOGREN'S ANTI SS-B <0.2 AI (0.0-0.9); SMITH ANTIBODIES 0.2 AI (0.0-0.9)
== END ==
LOC: M LAB 07:21
PROVIDERS: ATTEND Orthopaedic Surgery
DX: M54.50 Low back pain, unspecified (principal)

== ENCOUNTER → 2021-09-30 | Outpatient (REF) | payer BC ==
[~2021-09-30] MED LIST changes: +NEUR300C PO
[2021-09-30 16:53] LABS: APPEARANCE, URINE MANUAL CLEAR (CLEAR); COLOR, URINE MANUAL LT YELLOW (YELLOW)
[2021-09-30 16:54] LABS: BILIRUBIN, URINE MANUAL NEGATIVE (NEGATIVE); BLOOD URINE MANUAL POSITIVE (NEGATIVE); GLUCOSE, URINE (UA) MANUAL NEGATIVE (NEGATIVE); KETONE, URINE MANUAL NEGATIVE (NEGATIVE); LEUKOCYTE ESTERASE, URINE MAN NEGATIVE (NEGATIVE); NITRITE, URINE MANUAL NEGATIVE (NEGATIVE); PROTEIN, URINE MANUAL NEGATIVE (NEGATIVE); UROBILINOGEN, URINE MANUAL NORMAL (NORMAL)
[2021-09-30 17:19] LABS: BLOOD UREA NITROGEN 16 MG/DL (7-18); GLUCOSE, FASTING 90 MG/DL (70-100)
[2021-09-30 17:20] LABS: ALBUMIN 4.1 GM/DL (3.2-5.2); ALT/SGPT 26 U/L (12-78); BASO % 0.5 % (0.0-1.0); BILIRUBIN,TOTAL 0.3 MG/DL (0.2-1.0); CALCIUM LEVEL 9.6 MG/DL (8.5-10.1); CARBON DIOXIDE LEVEL 28 MEQ/L (21-32); CHLORIDE LEVEL 109 MEQ/L (98-107); COMPLEMENT C3 126 MG/DL (90-180); COMPLEMENT C4 30 MG/DL (10-40); EOS # 0.1 10^3/uL (0.0-0.5); EOS % 2.1 % (0.0-3.0); GLOMERULAR FILTRATION RATE > 60.0 (>51); HEMATOCRIT 41.7 % (36.0-47.0); HEMOGLOBIN 13.5 g/dl (12.0-15.5); LDH LACTATE DEHYDROGENASE 175 U/L (84-246); LYMPH # 1.9 10^3/uL (1.5-5.0); LYMPH % 32.2 % (24.0-44.0); MEAN CORPUSCULAR HEMOGLOBIN 30.3 pg (27.0-33.0); MEAN CORPUSCULAR HGB CONC 32.4 g/dl (32.0-36.5); MEAN CORPUSCULAR VOLUME 93.7 fl (80.0-96.0); MONO # 0.4 10^3/uL (0.0-0.8); MONO % 6.6 % (2.0-8.0); NEUTROPHILS # 3.4 10^3/uL (1.5-8.5); NEUTROPHILS % 58.4 % (36.0-66.0); PLATELET COUNT, AUTOMATED 221 10^3/uL (150-450); POTASSIUM SERUM 3.8 MEQ/L (3.5-5.1); RED BLOOD COUNT 4.45 10^6/uL (4.00-5.40); SODIUM LEVEL 140 MEQ/L (136-145); TOTAL PROTEIN 7.1 GM/DL (6.4-8.2); WHITE BLOOD COUNT 5.8 10^3/uL (4.0-10.0)
[2021-09-30 17:36] LABS: CREATININE,RANDOM URINE 24.8 MG/DL; TOTAL PROTEIN,RANDOM URINE < 5.0 MG/DL (0.0-12.0)
[2021-09-30 17:57] LABS: TOTAL 25(OH) VITAMIN D 24.2 NG/ML (30.0-100.0)
[2021-09-30 18:48] LABS: WBC, URINE NONE SEEN /hpf (0-3)
[2021-09-30 18:49] LABS: BACTERIA, URINE NONE SEEN; HYALINE CAST, URINE NONE SEEN /lpf (0-1); MUCUS, URINE SMALL AMOUNT (NEGATIVE); SQUAMOUS EPITHELIAL CELL URINE SMALL AMOUNT /hpf (SMALL AMT)
[2021-09-30 19:02] LABS: ERYTHROCYTE SEDIMENTATION RATE 17 mm/hr (0-30)
== END ==
LOC: M SFHCRHEU 14:05
PROVIDERS: ATTEND Internal Medicine Rheumatology
DX: R76.8 Other specified abnormal immunological findings in serum (principal); M35.3 Polymyalgia rheumatica; M35.00 Sjogren syndrome, unspecified; R21 Rash and other nonspecific skin eruption; R05.3 Chronic cough; R31.29 Other microscopic hematuria

== ENCOUNTER → 2021-10-05 | Outpatient (CLI) | payer BC | LOC: M LABSMTC 09:17 | PROVIDERS: ATTEND Anesthesiology | DX: Z01.818 Encounter for other preprocedural examination (principal); Z11.52 Encounter for screening for COVID-19 ==

== ENCOUNTER 2021-10-08 08:58 | Day surgery (SDC) | payer BC ==
[~2021-10-08] VITALS: Ht 157.5 cm; Wt 71.7 kg
[~2021-10-08 08:58] MED LIST changes: +NS 1,000 ML IV ONE
[2021-10-08] MEDS ORDERED: fentaNYL 100 MCG/2 ML INJECTION As Ordered ONE (10:11)
[2021-10-08 10:30] VITALS: BP 128/57
== END 2021-10-08 10:35 | disposition home or self-care (01) ==
LOC: M OPP 08:58
PROVIDERS: ATTEND Surgery
DX: K21.00 Gastro-esophageal reflux disease with esophagitis, without bleeding (principal); K92.2 Gastrointestinal hemorrhage, unspecified; K44.9 Diaphragmatic hernia without obstruction or gangrene; K31.89 Other diseases of stomach and duodenum; K31.7 Polyp of stomach and duodenum; K22.70 Barrett's esophagus without dysplasia; Z79.899 Other long term (current) drug therapy; Z88.8 Allergy status to other drugs, medicaments and biological substances; I10 Essential (primary) hypertension; F32.9 Major depressive disorder, single episode, unspecified; Z86.39 Personal history of other endocrine, nutritional and metabolic disease
CPT/HCPCS: 43239; 88305; J3010

== ENCOUNTER → 2021-12-28 | Outpatient (CLI) | payer BC ==
[~2021-12-28] MED LIST changes: -NS 1,000 ML IV ONE; +PANT40TA29 PO
== END ==
LOC: M LABSMTC 09:59
PROVIDERS: ATTEND Anesthesiology
DX: Z01.812 Encounter for preprocedural laboratory examination (principal); Z20.822 Contact with and (suspected) exposure to COVID-19

== ENCOUNTER 2021-12-31 06:59 | Day surgery (SDC) | payer BC ==
[~2021-12-31] VITALS: Ht 157.5 cm; Wt 69.9 kg
[~2021-12-31 06:59] MED LIST changes: +NS 1,000 ML IV ONE
[2021-12-31] MEDS ORDERED: LIDOCAINE 2% 100MG/5ML SDV (FOR ANES.) As Ordered ONE (08:20)
[2021-12-31] MEDS ORDERED: propofoL 200 MG/20 ML VIAL As Ordered ONE (08:20)
[2021-12-31 09:25] VITALS: BP 120/70
== END 2021-12-31 09:36 | disposition home or self-care (01) ==
LOC: M OPP 06:59
PROVIDERS: ATTEND Surgery
DX: Z12.11 Encounter for screening for malignant neoplasm of colon (principal); Z86.010 Personal history of colon polyps; D12.2 Benign neoplasm of ascending colon; K63.5 Polyp of colon; K57.30 Diverticulosis of large intestine without perforation or abscess without bleeding; Z79.899 Other long term (current) drug therapy; I10 Essential (primary) hypertension; K22.70 Barrett's esophagus without dysplasia; Z87.442 Personal history of urinary calculi

== ENCOUNTER → 2022-01-16 | Outpatient (CLI) | payer BC ==
[~2022-01-16] MED LIST changes: -NS 1,000 ML IV ONE
== END ==
LOC: M CLY 11:09
PROVIDERS: ATTEND Family Medicine
DX: M25.511 Pain in right shoulder (principal)

== ENCOUNTER → 2022-01-26 | Outpatient (CLI) | payer BC ==
[~2022-01-26] MED LIST changes: +GASTROGRAFIN SOLUTION 30ML As Ordered ONE; +ISOVUE-370 76% 100ML VIAL As Ordered ONE
== END ==
LOC: M RAD 15:29
PROVIDERS: ATTEND Physician Assistant
DX: K92.1 Melena (principal); K44.9 Diaphragmatic hernia without obstruction or gangrene; N28.1 Cyst of kidney, acquired

== ENCOUNTER → 2022-02-19 | Outpatient (CLI) | payer BC ==
[~2022-02-19] MED LIST changes: -GASTROGRAFIN SOLUTION 30ML As Ordered ONE; -ISOVUE-370 76% 100ML VIAL As Ordered ONE
== END ==
LOC: M WHC 14:55
PROVIDERS: ATTEND Nurse Practitioner Family
DX: Z12.31 Encounter for screening mammogram for malignant neoplasm of breast (principal)

== ENCOUNTER → 2022-03-27 | Outpatient (CLI) | payer BC ==
[2022-03-27 14:18] LABS: BASO % 0.7 % (0.0-1.0); EOS # 0.1 10^3/uL (0.0-0.5); EOS % 1.5 % (0.0-3.0); HEMATOCRIT 43.1 % (36.0-47.0); HEMOGLOBIN 13.8 g/dl (12.0-15.5); LYMPH # 1.7 10^3/uL (1.5-5.0); LYMPH % 31.6 % (24.0-44.0); MEAN CORPUSCULAR HEMOGLOBIN 29.4 pg (27.0-33.0); MEAN CORPUSCULAR VOLUME 91.9 fl (80.0-96.0); MONO # 0.4 10^3/uL (0.0-0.8); MONO % 7.1 % (2.0-8.0); NEUTROPHILS # 3.1 10^3/uL (1.5-8.5); NEUTROPHILS % 58.9 % (36.0-66.0); PLATELET COUNT, AUTOMATED 214 10^3/uL (150-450); RED BLOOD COUNT 4.69 10^6/uL (4.00-5.40); WHITE BLOOD COUNT 5.3 10^3/uL (4.0-10.0)
[2022-03-27 14:49] LABS: BLOOD UREA NITROGEN 19 MG/DL (9-23); CREATININE FOR GFR 0.74 MG/DL (0.55-1.30); GLOMERULAR FILTRATION RATE > 60.0 (>45); IRON (FE) 78 UG/DL (50-170); PERCENT SATURATION 23.1 % (13.2-45.0); TOTAL IRON BINDING CAPACITY 338 UG/DL (250-425)
[2022-03-27 14:50] LABS: FERRITIN 35.7 NG/ML (7.3-270.7)
[2022-03-27 14:52] LABS: FOLATE 20.1 NG/ML (>5.4); VITAMIN B12 LEVEL 320 PG/ML (211-911)
== END ==
LOC: M LAB 12:21
PROVIDERS: ATTEND Internal Medicine Gastroenterology
DX: K62.5 Hemorrhage of anus and rectum (principal)

== ENCOUNTER → 2022-04-08 | Outpatient (REF) | payer BC ==
[2022-04-08 17:33] LABS: FREE T4 1.01 NG/DL (0.89-1.76); THYROID STIMULATING HORMONE 0.229 uIU/ML (0.55-4.78)
[2022-04-08 17:35] LABS: FREE T3 3.4 PG/ML (2.3-4.2)
== END ==
LOC: M SFHCCLAY 13:47
PROVIDERS: ATTEND Family Medicine
DX: I10 Essential (primary) hypertension (principal); E78.00 Pure hypercholesterolemia, unspecified; H35.52 Pigmentary retinal dystrophy; R21 Rash and other nonspecific skin eruption; E05.90 Thyrotoxicosis, unspecified without thyrotoxic crisis or storm

== ENCOUNTER → 2022-04-21 | Outpatient (CLI) | payer BC ==
[2022-04-21 14:40] LABS: BASO % 0.6 % (0.0-1.0); EOS # 0.1 10^3/uL (0.0-0.5); EOS % 1.9 % (0.0-3.0); HEMATOCRIT 41.6 % (36.0-47.0); HEMOGLOBIN 13.1 g/dl (12.0-15.5); LYMPH # 1.9 10^3/uL (1.5-5.0); LYMPH % 35.4 % (24.0-44.0); MEAN CORPUSCULAR HEMOGLOBIN 28.9 pg (27.0-33.0); MEAN CORPUSCULAR HGB CONC 31.5 g/dl (32.0-36.5); MEAN CORPUSCULAR VOLUME 91.8 fl (80.0-96.0); MONO # 0.4 10^3/uL (0.0-0.8); MONO % 7.8 % (2.0-8.0); NEUTROPHILS # 2.9 10^3/uL (1.5-8.5); NEUTROPHILS % 53.9 % (36.0-66.0); PLATELET COUNT, AUTOMATED 193 10^3/uL (150-450); RED BLOOD COUNT 4.53 10^6/uL (4.00-5.40); WHITE BLOOD COUNT 5.4 10^3/uL (4.0-10.0)
[2022-04-21 14:52] LABS: APPEARANCE, URINE CLEAR (CLEAR); BACTERIA, URINE AUTO 1+ (NEGATIVE); BILIRUBIN, URINE AUTO NEGATIVE (NEGATIVE); BLOOD, URINE BLOOD 2+ (NEGATIVE); COLOR, URINE YELLOW (YELLOW); GLUCOSE, URINE (UA) AUTO NEGATIVE (NEGATIVE); KETONE, URINE AUTO NEGATIVE (NEGATIVE); LEUKOCYTE ESTERASE, URINE AUTO 1+ (NEGATIVE); NITRITE, URINE AUTO NEGATIVE (NEGATIVE); PROTEIN, URINE AUTO NEGATIVE (NEGATIVE); RBC, URINE AUTO 20 /HPF (0-3); SPECIFIC GRAVITY URINE AUTO 1.014 (1.002-1.035); SQUAMOUS EPITHELIAL CELL UR AU 1 /HPF (0-6); UROBILINOGEN, URINE AUTO 0.2 mg/dL (0.0-2.0); WBC, URINE AUTO 5 /HPF (0-3)
[2022-04-21 15:00] LABS: ERYTHROCYTE SEDIMENTATION RATE 17 mm/hr (0-30)
[2022-04-21 15:06] LABS: TOTAL PROTEIN,RANDOM URINE 7.6 MG/DL (0.0-14.0)
[2022-04-21 15:11] LABS: C REACTIVE PROTEIN QUANTITATIV < 0.40 MG/DL (<1.0)
[2022-04-21 15:12] LABS: ALBUMIN 3.7 G/DL (3.2-5.2); ALKALINE PHOSPHATASE 82 U/L (46-116); ALT/SGPT 23 U/L (7.0-40); AST/SGOT 22 U/L (<34); BILIRUBIN,TOTAL 0.3 MG/DL (0.3-1.2); BLOOD UREA NITROGEN 23 MG/DL (9-23); CALCIUM LEVEL 8.9 MG/DL (8.3-10.6); CARBON DIOXIDE LEVEL 30 MMOL/L (20-31); CHLORIDE LEVEL 108 MMOL/L (98-107); COMPLEMENT C4 24.6 MG/DL (12-36); CREATININE FOR GFR 0.74 MG/DL (0.55-1.30); GLOMERULAR FILTRATION RATE > 60.0 (>45); GLUCOSE, FASTING 88 MG/DL (74-106); POTASSIUM SERUM 4.3 MMOL/L (3.5-5.1); SODIUM LEVEL 142 MMOL/L (136-145); TOTAL PROTEIN 6.5 G/DL (5.7-8.2)
== END ==
LOC: M LAB 13:59
PROVIDERS: ATTEND Internal Medicine Rheumatology
DX: R76.8 Other specified abnormal immunological findings in serum (principal); M35.3 Polymyalgia rheumatica; M35.00 Sjogren syndrome, unspecified; R21 Rash and other nonspecific skin eruption; R05.3 Chronic cough; R31.29 Other microscopic hematuria

== ENCOUNTER → 2022-05-11 | Outpatient (CLI) | payer BC ==
[~2022-05-11] MED LIST changes: +VITA-183 PO
== END ==
LOC: M LABSMTC 11:19
PROVIDERS: ATTEND Anesthesiology
DX: Z20.822 Contact with and (suspected) exposure to COVID-19 (principal)

== ENCOUNTER 2022-05-15 08:42 | Day surgery (SDC) | payer BC ==
[~2022-05-15] VITALS: Ht 157.5 cm; Wt 72.8 kg
[~2022-05-15 08:42] MED LIST changes: +NS 1,000 ML IV ONE
[2022-05-15] MEDS ORDERED: fentaNYL 100 MCG/2 ML INJECTION As Ordered ONE (10:15)
[2022-05-15] MEDS ORDERED: LIDOCAINE 2% 100MG/5ML SDV (FOR ANES.) As Ordered ONE (10:15)
[2022-05-15] MEDS ORDERED: propofoL 200 MG/20 ML VIAL As Ordered ONE (10:15)
[2022-05-15 11:57] VITALS: BP 108/63
== END 2022-05-15 11:58 | disposition home or self-care (01) ==
LOC: M OPP 08:42
PROVIDERS: ATTEND Internal Medicine Gastroenterology
DX: Z12.11 Encounter for screening for malignant neoplasm of colon (principal); Z86.010 Personal history of colon polyps; K63.5 Polyp of colon; K64.4 Residual hemorrhoidal skin tags; K64.8 Other hemorrhoids; K57.30 Diverticulosis of large intestine without perforation or abscess without bleeding; K21.00 Gastro-esophageal reflux disease with esophagitis, without bleeding; K29.70 Gastritis, unspecified, without bleeding; K57.10 Diverticulosis of small intestine without perforation or abscess without bleeding; K22.89 Other specified disease of esophagus; K31.89 Other diseases of stomach and duodenum; Z87.442 Personal history of urinary calculi; Z79.891 Long term (current) use of opiate analgesic; Z79.899 Other long term (current) drug therapy; Z88.8 Allergy status to other drugs, medicaments and biological substances
CPT/HCPCS: 43239; 45385; 88305; J3010

== ENCOUNTER → 2022-08-26 | Outpatient (REF) | payer BC ==
[~2022-08-26] MED LIST changes: -NS 1,000 ML IV ONE
[2022-08-26 17:57] LABS: APPEARANCE, URINE CLEAR (CLEAR); BACTERIA, URINE AUTO NEGATIVE (NEGATIVE); BILIRUBIN, URINE AUTO NEGATIVE (NEGATIVE); BLOOD, URINE BLOOD 2+ (NEGATIVE); COLOR, URINE STRAW (YELLOW); GLUCOSE, URINE (UA) AUTO NEGATIVE (NEGATIVE); KETONE, URINE AUTO NEGATIVE (NEGATIVE); LEUKOCYTE ESTERASE, URINE AUTO NEGATIVE (NEGATIVE); MUCUS, URINE SMALL (NEGATIVE); NITRITE, URINE AUTO NEGATIVE (NEGATIVE); PROTEIN, URINE AUTO NEGATIVE (NEGATIVE); RBC, URINE AUTO 2 /HPF (0-3); SQUAMOUS EPITHELIAL CELL UR AU 2 /HPF (0-6); UROBILINOGEN, URINE AUTO 0.2 mg/dL (0.0-2.0); WBC, URINE AUTO 2 /HPF (0-3)
== END ==
LOC: M SFHCCLAY 14:47
PROVIDERS: ATTEND Family Medicine
DX: N30.01 Acute cystitis with hematuria (principal)

== ENCOUNTER → 2022-10-16 | Outpatient (CLI) | payer BC | LOC: M PLARAD 08:05 | PROVIDERS: ATTEND Urology | DX: N28.89 Other specified disorders of kidney and ureter (principal) ==

== ENCOUNTER → 2023-04-05 | Outpatient (REF) | payer BC | LOC: M SFHCWAGY 17:18 | PROVIDERS: ATTEND Nurse Practitioner Family | DX: Z12.4 Encounter for screening for malignant neoplasm of cervix (principal) | CPT/HCPCS: 87624; G0123 ==

== ENCOUNTER → 2023-04-05 | Outpatient (CLI) | payer BC | LOC: M WHC 14:59 | PROVIDERS: ATTEND Nurse Practitioner Family | DX: Z12.31 Encounter for screening mammogram for malignant neoplasm of breast (principal) ==

== ENCOUNTER → 2023-07-27 | Outpatient (CLI) | payer BC ==
[~2023-07-27] MED LIST changes: +PROHANCE 279.3MG/ML 15ML VIAL As Ordered ONE
== END ==
LOC: M RAD 12:23
PROVIDERS: ATTEND Physician Assistant
DX: M48.062 Spinal stenosis, lumbar region with neurogenic claudication (principal)
CPT/HCPCS: 72158; A9576

== ENCOUNTER → 2023-09-14 | Outpatient (REF) | payer BC ==
[~2023-09-14] MED LIST changes: -PROHANCE 279.3MG/ML 15ML VIAL As Ordered ONE
== END ==
LOC: M LAB REF 15:29
PROVIDERS: ATTEND Internal Medicine Endocrinology, Diabetes & Metabolism
DX: E04.1 Nontoxic single thyroid nodule (principal)

== ENCOUNTER → 2024-06-02 | Outpatient (REF) | payer BC ==
[2024-06-02 14:11] LABS: HEMOGLOBIN A1c 5.4 % (4.0-6.0)
[2024-06-02 14:12] LABS: THYROID STIMULATING HORMONE 0.254 uIU/ML (0.55-4.78)
[2024-06-02 14:14] LABS: FREE T4 1.01 NG/DL (0.89-1.76)
[2024-06-02 14:16] LABS: ALBUMIN 3.7 G/DL (3.2-5.2); BILIRUBIN,TOTAL 0.4 MG/DL (0.3-1.2); CHOLESTEROL RISK RATIO 4.97 (<5); CREATININE FOR GFR 0.79 MG/DL (0.55-1.30); GLOMERULAR FILTRATION RATE 84.5 (>45); LDL CHOLESTEROL 157.2 MG/DL (<100); POTASSIUM SERUM 4.3 MMOL/L (3.5-5.1); TOTAL PROTEIN 6.7 G/DL (5.7-8.2)
== END ==
LOC: M SFHCCLAY 07:49
PROVIDERS: ATTEND Physician Assistant
DX: N28.1 Cyst of kidney, acquired (principal); E27.8 Other specified disorders of adrenal gland; I10 Essential (primary) hypertension; H35.52 Pigmentary retinal dystrophy; L57.0 Actinic keratosis; L30.4 Erythema intertrigo; E04.1 Nontoxic single thyroid nodule; K21.9 Gastro-esophageal reflux disease without esophagitis; F32.9 Major depressive disorder, single episode, unspecified; M47.816 Spondylosis without myelopathy or radiculopathy, lumbar region